=== PATIENT | male | born 1965 | race African-American/Black ===

== ENCOUNTER 2016-09-11 07:08 | Emergency (ER) | payer OTHER ==
[~2016-09-11] VITALS: Ht 185.4 cm; Wt 84.0 kg
[~2016-09-11 07:08] MED LIST: DIOV80TA4 PO; GLUCTAB PO; HYDR-2768 PO; NIAC500T5 PO; ROSU20 PO; TAMS0.4C67 PO; Z.0.COMMODE-3:1; Z.0.WALKERFRONT
[2016-09-11 07:10] VITALS: BP 118/66; PULSE 60; RESP 20; TEMP 97.5; O2SAT 96
--- NOTE | 2016-09-11 07:46 | PD ---
HPI Chief Complaint: Flank/Kidney Pain Time Seen by Provider: 07:43 Travel History International Travel<30 days: No Contact w/Intl Traveler<30days: No Traveled to known affect area: No History of Present Illness HPI 51 year old male presents to the emergency department for evaluation of right flank pain that radiates to the right upper abdomen that has been ongoing for several days, but has worsened over the past 2 days. Patient states that movement does not necessarily worsen the pain. However, if he moves a certain direction, he can reduce the pain. He denies any fevers or chills. He Denies any shortness breath. He states when the pain becomes severe, he becomes short of breath. He denies any chest pain. No vomiting. He states the pain makes it hard to walk. Reports PMH of hypertension, hyperlipidemia, diabetes. He is status post right nephrectomy because he donated the kidney. He also reports right arthroplasty. PFSH Past Medical History Hx Anticoagulant Therapy: Yes Arthritis: No Asthma: No Autoimmune Disease: No Blood Disorders: No Anxiety: No Depression: No Heart Rhythm Problems: No Cancer: No Cardiac Catheterization: Yes Cardiovascular Problems: Yes (CARDIAC CATH) High Cholesterol: No Chemotherapy: No Chest Pain: Yes Congestive Heart Failure: No COPD: No Cerebrovascular Accident: No Diabetes: Yes Diminished Hearing: No Endocrine: Yes GERD: No Glaucoma: No Genitourinary: Yes (HAS ONLY ONE KIDNEY - RIGHT DONATED ; BPH) Headaches: No Hepatitis: No Hiatal Hernia: No Hypertension: Yes Immune Disorder: No Kidney Stones: No Musculoskeletal: Yes (ARTHRITIS ; NECK PAIN -DISC PROBLEM) Neurologic: No Psychiatric: No Reproductive: No Respiratory: No Myocardial Infarction: No Radiation Therapy: No Renal Failure: No Seizures: No Sickle Cell Disease: No Sleep Apnea: No Thyroid Disease: No Ulcer: No Past Surgical History Abdominal Surgery: Yes (APPENDECTOMY) AICD: No Appendectomy: Yes Body Medical Devices: NONE Coronary Artery Bypass Graft: No Genitourinary Surgery: Yes (KIDNEY DONOR RIGHT KIDNEY) Pacemaker: No Other Surgery: Yes Family History Family Hypercholesterolemia: Yes Social History Alcohol Use: Yes (BEER OCCAS) Tobacco Use: Yes (2 CIGAR A DAY) Substance Use: No Allergies-Medications (Allergen,Severity, Reaction): Coded Allergies: CALEB Inhibitors (Verified Allergy, Unknown, Swelling, 09/11/16) Reported Meds & Prescriptions Reported Meds & Active Scripts Active Flexeril (Cyclobenzaprine HCl) 10 Mg Tab 10 Mg PO TID Lortab (Hydrocodone-Acetaminophen) 5-325 Mg Tab 1 Tab PO Q6H PRN Walker Front Wheel (Z.0.walkerfront) Device 1 Unit Commode-3:1 (Z.0.commode-3:1) Device 1 Unit Reported Niacin 500 Mg Tab 500 Mg PO DAILY Hctz (Hydrochlorothiazide) 25 Mg Tab 25 Mg PO DAILY Diovan (Valsartan) 80 Mg Tab 80 Mg PO DAILY Glucophage XR 24 HR (Metformin HCl) 500 Mg Tab 500 Mg PO DAILY Crestor (Rosuvastatin Calcium) 20 Mg Tab 20 Mg PO DAILY Flomax (Tamsulosin HCl) 0.4 Mg Cap 0.4 Mg PO DAILY Review of Systems Except as stated in HPI: all other systems reviewed are Neg Physical Exam Narrative GENERAL: Well-developed well-nourished male patient, ambulatory. Afebrile. SKIN: Warm and dry. HEAD: Normocephalic. Atraumatic. EYES: No scleral icterus. No injection or drainage. NECK: Supple, trachea midline. No JVD or lymphadenopathy. CARDIOVASCULAR: Regular rate and rhythm without murmurs, gallops, or rubs. RESPIRATORY: Breath sounds equal bilaterally. No accessory muscle use. Lungs sounds are clear to auscultation. GASTROINTESTINAL: Abdomen soft and nondistended. Patient has tenderness over right upper quadrant. MUSCULOSKELETAL: No cyanosis, or edema. BACK: Nontender without obvious deformity. Right CVA tenderness. No midline spinal tenderness to palpation. Data Data Last Documented VS Vital Signs Date Time Temp Pulse Resp B/P Pulse Ox O2 Delivery O2 Flow Rate FiO2 09/11/16 10:39 09/11/16 10:36 54 18 100 Room Air 09/11/16 07:10 97.5 Orders Complete Blood Count With Diff (09/11/16 07:42) Comprehensive Metabolic Panel (09/11/16 07:42) Lipase (09/11/16 07:42) Urinalysis - C+S If Indicated (09/11/16 07:42) Electrocardiogram (09/11/16 07:42) Hydromorphone Pf Inj (Dilaudid Pf Inj) (09/11/16 09:15) Labs Laboratory Tests Test 09/11/16 09/11/16 08:03 08:10 White Blood Count 8.4 TH/MM3 Red Blood Count 4.65 MIL/MM3 Hemoglobin 13.4 GM/DL Hematocrit 39.1 % Mean Corpuscular Volume 84.1 FL Mean Corpuscular Hemoglobin 28.9 PG Mean Corpuscular Hemoglobin 34.4 % Concent Red Cell Distribution Width 16.1 % Platelet Count 287 TH/MM3 Mean Platelet Volume 7.3 FL Neutrophils (%) (Auto) 66.0 % Lymphocytes (%) (Auto) 21.4 % Monocytes (%) (Auto) 10.4 % Eosinophils (%) (Auto) 1.6 % Basophils (%) (Auto) 0.6 % Neutrophils # (Auto) 5.6 TH/MM3 Lymphocytes # (Auto) 1.8 TH/MM3 Monocytes # (Auto) 0.9 TH/MM3 Eosinophils # (Auto) 0.1 TH/MM3 Basophils # (Auto) 0.1 TH/MM3 CBC Comment DIFF FINAL Differential Comment Sodium Level 136 MEQ/L Potassium Level 4.0 MEQ/L Chloride Level 103 MEQ/L Carbon Dioxide Level 24.4 MEQ/L Anion Gap 9 MEQ/L Blood Urea Nitrogen 18 MG/DL Creatinine 1.13 MG/DL Estimat Glomerular Filtration 82 ML/MIN Rate Random Glucose 93 MG/DL Calcium Level 9.1 MG/DL Total Bilirubin 0.3 MG/DL Aspartate Amino Transf 17 U/L (AST/SGOT) Alanine Aminotransferase 22 U/L (ALT/SGPT) Alkaline Phosphatase 97 U/L Total Protein 7.5 GM/DL Albumin 3.5 GM/DL Lipase 355 U/L Urine Color LIGHT-YELLOW Urine Turbidity CLEAR Urine pH 5.5 Urine Specific [place] 1.009 Urine Protein NEG mg/dL Urine Glucose (UA) NEG mg/dL Urine Ketones NEG mg/dL Urine Occult Blood NEG Urine Nitrite NEG Urine Bilirubin NEG Urine Urobilinogen LESS THAN 2.0 MG/DL Urine Leukocyte Esterase NEG Urine RBC LESS THAN 1 /hpf Urine WBC LESS THAN 1 /hpf Urine Squamous Epithelial <1 /hpf Cells Microscopic Urinalysis Comment CULT NOT INDICATED MDM Medical Decision Making Medical Screen Exam Complete: Yes Emergency Medical Condition: Yes Medical Record Reviewed: Yes Differential Diagnosis cholecystitis vs. pancreatitis vs. muscle spasms vs. muscle strain vs. UTI Narrative Course 51-year-old male presents to the emergency department for evaluation of right flank pain that radiates to the right upper abdomen, that worsened 2 days ago. CBC, CMP, lipase, UA, EKG are ordered and pending in triage. Workup is initiated in triage. Once a medical bed becomes available, patient will be transferred and care assumed by that provider. Scripts Cyclobenzaprine (Flexeril)10 Mg Tab10 Mg PO TID #15 TAB Ref 0 Prov:Johnathan Meade MD 09/11/16 Hydrocodone-Acetaminophen (Lortab)5-325 Mg Tab1 Tab PO Q6H PRN (PAIN) #20 TAB Ref 0 Prov:Johnathan Meade MD 09/11/16 Doris Noriega Sep 11, 2016 07:46
[2016-09-11 08:39] LABS: AUTOMATED NEUTROPHIL # 5.6 TH/MM3 (1.8-7.7); BASOPHIL # 0.1 TH/MM3 (0-0.2); BASOPHIL % 0.6 % (0.0-2.0); EOSINOPHIL # 0.1 TH/MM3 (0-0.4); EOSINOPHIL % 1.6 % (0.0-4.0); HEMATOCRIT 39.1 % (39.0-51.0); HEMO FLAGS DIFF FINAL; LYMPH % 21.4 % (9.0-44.0); LYMPHOCYTE # 1.8 TH/MM3 (1.0-4.8); MEAN CELL VOLUME 84.1 FL (80.0-100.0); MEAN CORPUSCULAR HEMOGLOBIN 28.9 PG (27.0-34.0); MEAN CORPUSCULAR HGB CONC 34.4 % (32.0-36.0); MONO % 10.4 % (0.0-8.0); PLATELET COUNT 287 TH/MM3 (150-450); RED BLOOD COUNT 4.65 MIL/MM3 (4.50-5.90); RED CELL DISTRIBUTION WIDTH 16.1 % (11.6-17.2); WHITE BLOOD COUNT 8.4 TH/MM3 (4.0-11.0)
[2016-09-11 08:42] LABS: BLOOD, URINE NEG (NEG); GLUCOSE,URINE NEG (NEG); KETONE, URINE NEG (NEG); NITRITE,URINE NEG (NEG); PH, URINE 5.5 (5.0-8.5); SQUAMOUS EPITHELIAL CELL URINE <1 /hpf (0-5); URINE COLOR LIGHT-YELLOW (YELLW/STRAW)
[2016-09-11 08:48] VITALS: BP 113/64; PULSE 53; RESP 18; O2SAT 100
[2016-09-11 08:48] LABS: COMMENT (UR) CULT NOT INDICATED; CULTURE IF INDICATED CULT NOT INDICATED
[2016-09-11 09:10] LABS: ALKALINE PHOSPHATASE 97 U/L (45-117); ALT (GPT) 22 U/L (12-78); ANION GAP 9 MEQ/L (5-15); AST (GOT) 17 U/L (15-37); BICARBONATE 24.4 MEQ/L (21.0-32.0); BLOOD UREA NITROGEN 18 MG/DL (7-18); CHLORIDE 103 MEQ/L (98-107); GLOMERULAR FILTRATION RATE 82 ML/MIN (>89); SODIUM (NA) 136 MEQ/L (136-145); TOTAL BILIRUBIN ADULT 0.3 MG/DL (0.2-1.0)
[2016-09-11] MEDS ORDERED: HYDROmorphone HCL PF 1 MG/ML VIAL IM ONE (09:15)
--- NOTE | 2016-09-11 10:27 | PD ---
Physical Exam Date Seen by Provider: Sep 11, 2016 Time Seen by Provider: 09:00 Narrative She was initially seen by Doris Dimas and orders and labs were sent. Patient came in with complaints of right sided flank pain. Patient reports been there for 2 days. He denies any trauma. Denies any fevers, chills. He denies any chest pain, chest pressure. On examination. He is point tender in his right lower intercostal muscle distribution. There is no bony deformity. It is tender to touch and tender to movement from side to side. 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 Data Data Last Documented VS Vital Signs Date Time Temp Pulse Resp B/P Pulse Ox O2 Delivery O2 Flow Rate FiO2 09/11/16 08:48 53 18 113/64 100 Room Air 09/11/16 07:10 97.5 Orders Complete Blood Count With Diff (09/11/16 07:42) Comprehensive Metabolic Panel (09/11/16 07:42) Lipase (09/11/16 07:42) Urinalysis - C+S If Indicated (09/11/16 07:42) Electrocardiogram (09/11/16 07:42) Hydromorphone Pf Inj (Dilaudid Pf Inj) (09/11/16 09:15) Labs Laboratory Tests Test 09/11/16 09/11/16 08:03 08:10 White Blood Count 8.4 TH/MM3 Red Blood Count 4.65 MIL/MM3 Hemoglobin 13.4 GM/DL Hematocrit 39.1 % Mean Corpuscular Volume 84.1 FL Mean Corpuscular Hemoglobin 28.9 PG Mean Corpuscular Hemoglobin 34.4 % Concent Red Cell Distribution Width 16.1 % Platelet Count 287 TH/MM3 Mean Platelet Volume 7.3 FL Neutrophils (%) (Auto) 66.0 % Lymphocytes (%) (Auto) 21.4 % Monocytes (%) (Auto) 10.4 % Eosinophils (%) (Auto) 1.6 % Basophils (%) (Auto) 0.6 % Neutrophils # (Auto) 5.6 TH/MM3 Lymphocytes # (Auto) 1.8 TH/MM3 Monocytes # (Auto) 0.9 TH/MM3 Eosinophils # (Auto) 0.1 TH/MM3 Basophils # (Auto) 0.1 TH/MM3 CBC Comment DIFF FINAL Differential Comment Sodium Level 136 MEQ/L Potassium Level 4.0 MEQ/L Chloride Level 103 MEQ/L Carbon Dioxide Level 24.4 MEQ/L Anion Gap 9 MEQ/L Blood Urea Nitrogen 18 MG/DL Creatinine 1.13 MG/DL Estimat Glomerular Filtration 82 ML/MIN Rate Random Glucose 93 MG/DL Calcium Level 9.1 MG/DL Total Bilirubin 0.3 MG/DL Aspartate Amino Transf 17 U/L (AST/SGOT) Alanine Aminotransferase 22 U/L (ALT/SGPT) Alkaline Phosphatase 97 U/L Total Protein 7.5 GM/DL Albumin 3.5 GM/DL Lipase 355 U/L Urine Color LIGHT-YELLOW Urine Turbidity CLEAR Urine pH 5.5 Urine Specific [place] 1.009 Urine Protein NEG mg/dL Urine Glucose (UA) NEG mg/dL Urine Ketones NEG mg/dL Urine Occult Blood NEG Urine Nitrite NEG Urine Bilirubin NEG Urine Urobilinogen LESS THAN 2.0 MG/DL Urine Leukocyte Esterase NEG Urine RBC LESS THAN 1 /hpf Urine WBC LESS THAN 1 /hpf Urine Squamous Epithelial <1 /hpf Cells Microscopic Urinalysis Comment CULT NOT INDICATED MDM Medical Record Reviewed: Yes Supervised Visit with LALO: Yes Differential Diagnosis Right sided intercostal muscle pull versus back spasm versus atypical muscular spasm versus retroperitoneal pain Narrative Course 81-year-old presents with 1-1/2 day history of right sided flank pain. Patient has point tenderness to his right lower intercostal muscle. It is tender to touch and hurts with movement from side to side. There is no rash noted. Patient is afebrile. Vital signs within normal limits. White count was 8.4. LFTs were normal. Creatinine is 1.13. The patient was given Dilaudid injection of 1 mg IM times one dose. I discussed with the patient that this is likely musculoskeletal as he is tender to touch in his intercostal muscle distribution. 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 I informed him that sometimes she can twist that muscle and not know it initially to get an inflammatory response. Given his history of single kidney, we will hold off on recommending NSAIDs. He'll be given a prescription for Lortab and Flexeril. He's been one about the side effects told not to drink alcohol or drive motor vehicle. He is instructed to return of he develops any worsening pain, fevers chills, or any other reason. Diagnosis Primary Impression: right posterior intercostal muscle pain. Additional Impression: history of single kidney Patient Instructions: Narcotic given in the ED Additional Instruction: Ice times one day then moist heat. Avoid heavy lifting 2-3 days. Med/Other Pt SpecificInfo: Prescription(s) given Scripts Cyclobenzaprine (Flexeril)10 Mg Tab10 Mg PO TID #15 TAB Ref 0 Prov:Johnathan Meade MD 09/11/16 Hydrocodone-Acetaminophen (Lortab)5-325 Mg Tab1 Tab PO Q6H PRN (PAIN) #20 TAB Ref 0 Prov:Johnathan Meade MD 09/11/16 Disposition: 01 DISCHARGE HOME Condition: Stable Johnathan Meade MD Sep 11, 2016 10:27
[2016-09-11] MEDS ORDERED: HYDR-3533 PO (10:28)
[2016-09-11] MEDS ORDERED: CYCL1TAB29 PO (10:28)
[2016-09-11 10:36] VITALS: BP 124/71; PULSE 54; RESP 18; O2SAT 100
--- NOTE | 2016-09-13 12:49 | EKG ---
Date Performed: 09/11/2016 Time Performed: 08:53:46 PTAGE: 51 years EKG: SINUS BRADYCARDIA BORDERLINE ECG PREVIOUS TRACING : 03/09/2015 09.27 Compared to prior tracing no significant change DOCTOR: Chito Cox Interpretating Date/Time 09/13/2016 12:47:49
== END 2016-09-11 10:40 | disposition home or self-care (01) ==
LOC: NEPE 07:08
DX: M79.1 Myalgia (principal); R94.31 Abnormal electrocardiogram [ECG] [EKG]; I10 Essential (primary) hypertension; Z90.5 Acquired absence of kidney
CPT/HCPCS: 80053; 81001; 83690; 85025; 93005; 96372; 99284; J1170

== ENCOUNTER 2016-11-18 10:19 | Inpatient (IN) | payer OTHER ==
[~2016-11-18] VITALS: Ht 185.4 cm; Wt 79.4 kg
[~2016-11-18 10:19] MED LIST changes: +CYCL1TAB29 PO; +HYDR-3533 PO
[2016-11-18 10:21] VITALS: BP 115/57; PULSE 67; RESP 20; TEMP 98.1; O2SAT 97
[2016-11-18] MEDS ORDERED: TAMS5CAP PO (10:34)
[2016-11-18] MEDS ORDERED: NIAC500T5 PO (10:34)
[2016-11-18] MEDS ORDERED: DIOV80TA4 PO (10:34)
[2016-11-18] MEDS ORDERED: HYDR25TA5 PO (10:34)
[2016-11-18] MEDS ORDERED: METF500T PO (10:34)
[2016-11-18] MEDS ORDERED: ROSU20 PO (10:34)
[2016-11-18] MEDS ORDERED: SODIUM CHLOR 0.9% 1000 ML INJ 1,000 ML IV SCH ×2 (10:54→13:00)
[2016-11-18 11:00] VITALS: RESP 16; O2SAT 100
[2016-11-18] MEDS ORDERED: MORPHINE SULFATE 4 MG/ML INJ IV PUSH ONE (11:00)
[2016-11-18] MEDS ORDERED: ONDANSETRON HCL 4 MG/2 ML VIAL IVP ONE (11:00)
[2016-11-18] MEDS ORDERED: SODIUM CHLORIDE 0.9% FLUSH 10 ML FLUSH IV FLUSH PRN (11:00)
[2016-11-18] MEDS ORDERED: PANTOPRAZOLE SODIUM 40 MG VIAL IVP ONE (11:00)
--- NOTE | 2016-11-18 11:12 | PD ---
HPI Chief Complaint: GI Complaint Time Seen by Provider: 11:00 Travel History International Travel<30 days: No Contact w/Intl Traveler<30days: No Traveled to known affect area: No History of Present Illness HPI Physical comes in complaining of epigastric pain that began 2 days ago. Patient has been sharp stabbing like in nature without radiation. Patient went to a walk-in clinic yesterday received a GI cocktail that improved his symptoms some. Patient reports associated nausea, but denies vomiting. Denies any chest pain, fevers, shortness of breath, back pain, numbness or tingling, loss or change in bowel or bladder, or fevers. Patient denies any change in pain with eating, states they try to drink some coffee that made him nauseous. Patient reports that he does drink a 4-5 beers daily. Patient has a single kidney secondary to donating the other one. Patient is a history of hypertension and diabetes. PFSH Past Medical History Hx Anticoagulant Therapy: Yes Arthritis: No Asthma: No Autoimmune Disease: No Blood Disorders: No Anxiety: No Depression: No Heart Rhythm Problems: No Cancer: No Cardiac Catheterization: Yes Cardiovascular Problems: Yes (CARDIAC CATH) High Cholesterol: No Chemotherapy: No Chest Pain: Yes Congestive Heart Failure: No COPD: No Cerebrovascular Accident: No Diabetes: Yes Patient Takes Glucophage: No Diminished Hearing: No Endocrine: Yes Gastrointestinal Disorders: Yes (GERD) GERD: No Glaucoma: No Genitourinary: Yes (HAS ONLY ONE KIDNEY - RIGHT DONATED ; BPH) Headaches: No Hepatitis: No Hiatal Hernia: No Hypertension: Yes Immune Disorder: No Kidney Stones: No Medical other: No Musculoskeletal: Yes (ARTHRITIS ; NECK PAIN -DISC PROBLEM) Neurologic: No Psychiatric: No Reproductive: No Respiratory: No Myocardial Infarction: No Radiation Therapy: No Renal Failure: No Seizures: No Sickle Cell Disease: No Sleep Apnea: No Thyroid Disease: No Ulcer: No Influenza Vaccination: Yes Past Surgical History Abdominal Surgery: Yes (APPENDECTOMY) AICD: No Appendectomy: Yes Body Medical Devices: NONE Coronary Artery Bypass Graft: No Genitourinary Surgery: Yes (KIDNEY DONOR RIGHT KIDNEY) Pacemaker: No Other Surgery: Yes Family History Family Myocardial Infarction: Yes Family Hypercholesterolemia: Yes Social History Alcohol Use: Yes (BEER OCCAS) Tobacco Use: Yes (1/2 ppd) Substance Use: No Allergies-Medications (Allergen,Severity, Reaction): Coded Allergies: CALEB Inhibitors (Verified Allergy, Unknown, Swelling, 11/18/16) Reported Meds & Prescriptions Reported Meds & Active Scripts Active Reported Diovan (Valsartan) 80 Mg Tab 80 Mg PO DAILY Flomax (Tamsulosin HCl) 0.4 Mg Cap 0.4 Mg PO HS Crestor (Rosuvastatin Calcium) 20 Mg Tab 20 Mg PO DAILY Niacin 500 Mg Tab 500 Mg PO DAILY Metformin (Metformin HCl) 500 Mg Tab 500 Mg PO DAILY With a meal Hydrochlorothiazide 25 Mg Tab 25 Mg PO DAILY Review of Systems Except as stated in HPI: all other systems reviewed are Neg Physical Exam Narrative GENERAL: Well-developed, overly nourished, in no acute distress, and non-ill appearing. SKIN: Focused skin assessment warm and dry. HEAD: Atraumatic. Normocephalic. EYES: Pupils equal and round. EOMI. No scleral icterus. No injection or drainage. ENT: No nasal bleeding or discharge. Mucous membranes pink and moist. NECK: Trachea midline. No JVD. Supple. No nuclear rigidity. CARDIOVASCULAR: Regular rate and rhythm. No murmur appreciated. RESPIRATORY: No accessory muscle use. No respiratory distress. Clear to auscultation. Breath sounds equal bilaterally. GASTROINTESTINAL: Abdomen soft, nondistended. Hepatic and splenic margins not palpable. Normal bowel sounds 4. No pulsatile mass. Patient reports tenderness to palpation epigastric region. Negative Bourgeois sign. MUSCULOSKELETAL: No obvious deformities. No clubbing. No cyanosis. No edema. Full range of motion. NEUROLOGICAL: Awake and alert. No obvious cranial nerve deficits. Motor grossly within normal limits. Normal speech. PSYCHIATRIC: Appropriate mood and affect; insight and judgment normal. Data Data Last Documented VS Vital Signs Date Time Temp Pulse Resp B/P Pulse Ox O2 Delivery O2 Flow Rate FiO2 11/18/16 10:21 98.1 67 20 115/57 97 Orders Electrocardiogram (11/18/16 ) Complete Blood Count With Diff (11/18/16 10:54) Comprehensive Metabolic Panel (11/18/16 10:54) Lipase (11/18/16 10:54) Prothrombin Time / Inr (Pt) (11/18/16 10:54) Act Partial Throm Time (Ptt) (11/18/16 10:54) Ct Abd/Pel W/O Iv Contrast (11/18/16 10:54) Iv Access Insert/Monitor (11/18/16 10:54) Ecg Monitoring (11/18/16 10:54) Oximetry (11/18/16 10:54) Morphine Inj (Morphine Inj) (11/18/16 11:00) Ondansetron Inj (Zofran Inj) (11/18/16 11:00) Sodium Chlor 0.9% 1000 Ml Inj (Ns 1000 M (11/18/16 10:54) Sodium Chloride 0.9% Flush (Ns Flush) (11/18/16 11:00) Urinalysis - C+S If Indicated (11/18/16 10:59) Pantoprazole Inj (Protonix Inj) (11/18/16 11:00) Troponin I (11/18/16 11:05) Chest, Single Ap (11/18/16 ) Admit Order (Ed Use Only) (11/18/16 12:29) Labs Laboratory Tests Test 11/18/16 11:05 White Blood Count 8.5 TH/MM3 Red Blood Count 4.71 MIL/MM3 Hemoglobin 13.6 GM/DL Hematocrit 39.1 % Mean Corpuscular Volume 83.1 FL Mean Corpuscular Hemoglobin 28.9 PG Mean Corpuscular Hemoglobin 34.7 % Concent Red Cell Distribution Width 16.3 % Platelet Count 284 TH/MM3 Mean Platelet Volume 7.1 FL Neutrophils (%) (Auto) 70.0 % Lymphocytes (%) (Auto) 20.1 % Monocytes (%) (Auto) 8.3 % Eosinophils (%) (Auto) 1.1 % Basophils (%) (Auto) 0.5 % Neutrophils # (Auto) 6.0 TH/MM3 Lymphocytes # (Auto) 1.7 TH/MM3 Monocytes # (Auto) 0.7 TH/MM3 Eosinophils # (Auto) 0.1 TH/MM3 Basophils # (Auto) 0.0 TH/MM3 CBC Comment DIFF FINAL Differential Comment Prothrombin Time 10.0 SEC Prothromb Time International 0.9 RATIO Ratio Activated Partial 26.2 SEC Thromboplast Time Sodium Level 132 MEQ/L Potassium Level 3.8 MEQ/L Chloride Level 96 MEQ/L Carbon Dioxide Level 27.1 MEQ/L Anion Gap 9 MEQ/L Blood Urea Nitrogen 10 MG/DL Creatinine 1.09 MG/DL Random Glucose 86 MG/DL Calcium Level 9.8 MG/DL Total Bilirubin 1.1 MG/DL Aspartate Amino Transf 20 U/L (AST/SGOT) Alanine Aminotransferase 25 U/L (ALT/SGPT) Alkaline Phosphatase 113 U/L Troponin I LESS THAN 0.02 NG/ML Total Protein 8.0 GM/DL Albumin 3.6 GM/DL Lipase 59077 U/L [facility] Medical Decision Making Medical Screen Exam Complete: Yes Emergency Medical Condition: Yes Interpretation(s) EKG reviewed by Dr. Adame shows sinus rhythm with a ventricular rate of 60. No STEMI. Chest x-ray read by the radiologist shows: No acute disease. CT the abdomen and pelvis shows: 1. Somewhat prominent gallbladder that appears benign. 2. No other significant abnormality is appreciated. Differential Diagnosis Pancreatitis, gastritis, ileus, gastroparesis, obstruction, mass, pneumonia, acute coronary syndrome(unlikely), electrolyte abnormality, dehydration, cholecystitis, diverticulitis, enteritis, other Narrative Course Patient was seen and examined. IV was established. Patient was placed on residential monitor. Initial laboratory radiological studies were obtained and reviewed with the exception of urine as the patient has not provided this yet. Patient was given morphine for pain, Zofran for nausea, and IV fluids. Patient reassessed reports some improvement of symptoms with medication. Discussed all findings and plan of care with patient, who is agreeable for admission. All questions were answered. Patient remains stable throughout ED course. Discussed patient with Dr. Adame, who is in agreement with plan of care and disposition. Physician Communication Physician Communication [phone] Arriaga, who is agreeable to admit the patient. Diagnosis Primary Impression: Pancreatitis Qualified Code: K85.20 - Alcohol-induced acute pancreatitis without infection or necrosis Additional Impression: Hyponatremia Admitting Information Admitting Physician Requests: Admit Condition: Stable Nathen Walker Nov 18, 2016 11:12
[2016-11-18 11:23] LABS: BASOPHIL % 0.5 % (0.0-2.0); EOSINOPHIL # 0.1 TH/MM3 (0-0.4); EOSINOPHIL % 1.1 % (0.0-4.0); HEMATOCRIT 39.1 % (39.0-51.0); HEMO FLAGS DIFF FINAL; LYMPH % 20.1 % (9.0-44.0); LYMPHOCYTE # 1.7 TH/MM3 (1.0-4.8); MEAN CELL VOLUME 83.1 FL (80.0-100.0); MEAN CORPUSCULAR HEMOGLOBIN 28.9 PG (27.0-34.0); MEAN CORPUSCULAR HGB CONC 34.7 % (32.0-36.0); MONO % 8.3 % (0.0-8.0); PLATELET COUNT 284 TH/MM3 (150-450); RED BLOOD COUNT 4.71 MIL/MM3 (4.50-5.90); RED CELL DISTRIBUTION WIDTH 16.3 % (11.6-17.2); WHITE BLOOD COUNT 8.5 TH/MM3 (4.0-11.0)
[2016-11-18 11:43] LABS: APTT (PATIENT) 26.2 SEC (24.3-30.1); INTERNATIONAL NORMALIZED RATIO 0.9 RATIO
[2016-11-18 11:45] LABS: ANION GAP 9 MEQ/L (5-15); AST (GOT) 20 U/L (15-37); BICARBONATE 27.1 MEQ/L (21.0-32.0); BLOOD UREA NITROGEN 10 MG/DL (7-18); CHLORIDE 96 MEQ/L (98-107); POTASSIUM 3.8 MEQ/L (3.5-5.1); SODIUM (NA) 132 MEQ/L (136-145)
[2016-11-18 11:46] LABS: ALT (GPT) 25 U/L (12-78)
[2016-11-18 11:48] LABS: ALKALINE PHOSPHATASE 113 U/L (45-117); TOTAL BILIRUBIN ADULT 1.1 MG/DL (0.2-1.0)
--- NOTE | 2016-11-18 11:56 | RADRPT ---
EXAM DATE/TIME: 11/18/2016 11:31 [facility] COMPARISON: No previous studies available for comparison. INDICATIONS : Pain in lower chest and short of breath for 2 weeks, no chest surgery MEDICAL HISTORY : None. SURGICAL HISTORY : total knee ENCOUNTER: Initial ACUITY: 2 weeks PAIN SCORE: 10/10 LOCATION: Bilateral chest FINDINGS: A single view of the chest demonstrates the lungs to be symmetrically aerated without evidence of mas s, infiltrate or effusion. The cardiomediastinal contours are unremarkable. Osseous structures are intact. CONCLUSION: No acute disease. Olegario Bertrand MD FACR on November 18, 2016 at 11:54 Board Certified Radiologist. This report was verified electronically.
--- NOTE | 2016-11-18 12:12 | RADRPT ---
EXAM DATE/TIME: 11/18/2016 11:23 [facility] COMPARISON: No previous studies available for comparison. INDICATIONS : Epigastric pain x2 days. ORAL CONTRAST: No oral contrast ingested. RADIATION DOSE: 9.96 CTDIvol (mGy) MEDICAL HISTORY : Gastroesophageal reflux disease. Hypertension. Cardiovascular disease Diabetes. SURGICAL HISTORY : Appendectomy. Cardiac catheterization. ENCOUNTER: Initial ACUITY: 2 days PAIN SCALE: 10/10 LOCATION: Bilateral epigastric TECHNIQUE: Volumetric scanning of the abdomen and pelvis was performed. Using automated exposure control and ad justment of the mA and/or kV according to patient size, radiation dose was kept as low as reasonably achievable to obtain optimal diagnostic quality images. FINDINGS: Lung bases are clear. The liver is free of focal defects. The gallbladder is mildly prominent but i s unremarkable. The pancreas, duodenum, and adrenal glands are unremarkable. The right kidney is absent. The left k idney is unremarkable. There is no ascites or adenopathy appreciated. Bladder, prostate and seminal vesicles are unremarkable. Review of bone windows reveals only degenerative changes. CONCLUSION: 1. Somewhat prominent gallbladder that appears benign. 2. No other significant abnormality is appreciated. Olegario Bertrand MD FACR on November 18, 2016 at 11:54 Board Certified Radiologist. This report was verified electronically.
[2016-11-18 12:30] VITALS: BP 119/66; PULSE 62; RESP 16; O2SAT 100
[2016-11-18] MEDS ORDERED: ONDANSETRON HCL 4 MG/2 ML VIAL IV PRN (12:30)
--- NOTE | 2016-11-18 13:02 | HHI.HP ---
HPI Service [facility] Hospitalists Primary Care Physician Ihsan Lozano MD Admission Diagnosis pancreatitis, mild hyponatremia Chief Complaint: abdominal pain Travel History International Travel<30 Days: No Contact w/Intl Traveler <30 Da: No Traveled to Known Affected Are: No History of Present Illness Mr. Gross is a pleasant 51 y/o AAM with diabetes, HTN and tobacco use who presented to the ED at [facility] on 11/18/16 with complaints of abdominal pain and nausea. He describes the pain as a sharp, stabbing in the epigastric area. Patient went to a walk-in clinic yesterday received a GI cocktail that improved his symptoms some. Patient reports associated nausea, but denies vomiting. Pt ate one time yesterday but can't say that the pain was worse after eating. This morning after drinking coffee his pain worsened significantly and this prompted him to come to the ED for further evaluation. Denies any chest pain, fevers, shortness of breath, back pain, numbness or tingling. Pt reports that yesterday his stools were very green but denies any melena or BRBPR. Patient reports that he does drink a 4-5 beers daily, no increased frequency recently. No new medications or medication changes. No recent illnesses. Pts labs at admission [place] [id number]. CT abd/pelvis showed a somewhat prominent gallbladder but otherwise benign appearing abdomen. Review of Systems Constitutional: DENIES: Fever, Chills Eyes: DENIES: Vision loss Respiratory: DENIES: Cough, Shortness of breath Cardiovascular: DENIES: Chest pain, Palpitations, Lower Extremity Edema Gastrointestinal: COMPLAINS OF: Abdominal pain, Nausea, DENIES: Constipation, Diarrhea, Vomiting Genitourinary: DENIES: Hematuria, Dysuria Musculoskeletal: DENIES: Neck pain Integumentary: DENIES: Rash Neurologic: DENIES: Headache Psychiatric: DENIES: Confusion Past Family Social History Past Medical History HTN Diabetes Hyperlipidemia Reported hx of pancreatitis in the past Past Surgical History Total knee replacement, right Nephrectomy in 1997 for organ donation Reported Medications Diovan (Valsartan) 80 Mg Tab 80 Mg PO DAILY Flomax (Tamsulosin HCl) 0.4 Mg Cap 0.4 Mg PO HS Crestor (Rosuvastatin Calcium) 20 Mg Tab 20 Mg PO DAILY Niacin 500 Mg Tab 500 Mg PO DAILY Metformin (Metformin HCl) 500 Mg Tab 500 Mg PO DAILY With a meal Hydrochlorothiazide 25 Mg Tab 25 Mg PO DAILY Allergies: Coded Allergies: CALEB Inhibitors (Verified Allergy, Unknown, Swelling, 11/18/16) Family History Noncontributory Social History (+)Tobacco use, 1/2ppd x 30+ years, quit for about 10 years during that time. (+)Alcohol use, 4 beers per day Physical Exam Vital Signs Vital Signs Date Time Temp Pulse Resp B/P Pulse Ox O2 Delivery O2 Flow Rate FiO2 11/18/16 10:21 98.1 67 20 115/57 97 Physical Exam GENERAL: This is a well-nourished, well-developed patient, in no apparent distress. HEENT: Atraumatic. Normocephalic. No temporal or scalp tenderness. No scleral icterus. Airway patent. NECK: Trachea midline, supple, nontender. CARDIO: Regular. RESP: CTA bilaterally. No wheezes, rales, or rhonchi. ABD: +BS, soft, epigastric tenderness, nondistended. EXT: Extremities without clubbing, cyanosis, or edema. NEURO: Awake and alert. Motor and sensory grossly within normal limits. Normal speech. Laboratory Laboratory Tests Test 11/18/16 11:05 White Blood Count 8.5 Red Blood Count 4.71 Hemoglobin 13.6 Hematocrit 39.1 Mean Corpuscular Volume 83.1 Mean Corpuscular Hemoglobin 28.9 Mean Corpuscular Hemoglobin 34.7 Concent Red Cell Distribution Width 16.3 Platelet Count 284 Mean Platelet Volume 7.1 Neutrophils (%) (Auto) 70.0 Lymphocytes (%) (Auto) 20.1 Monocytes (%) (Auto) 8.3 Eosinophils (%) (Auto) 1.1 Basophils (%) (Auto) 0.5 Neutrophils # (Auto) 6.0 Lymphocytes # (Auto) 1.7 Monocytes # (Auto) 0.7 Eosinophils # (Auto) 0.1 Basophils # (Auto) 0.0 CBC Comment DIFF FINAL Differential Comment Prothrombin Time 10.0 Prothromb Time International 0.9 Ratio Activated Partial 26.2 Thromboplast Time Sodium Level 132 Potassium Level 3.8 Chloride Level 96 Carbon Dioxide Level 27.1 Anion Gap 9 Blood Urea Nitrogen 10 Creatinine 1.09 Random Glucose 86 Calcium Level 9.8 Total Bilirubin 1.1 Aspartate Amino Transf 20 (AST/SGOT) Alanine Aminotransferase 25 (ALT/SGPT) Alkaline Phosphatase 113 Troponin I LESS THAN 0.02 Total Protein 8.0 Albumin 3.6 Lipase 98700 Result Diagram: 11/18/16 1105 11/18/16 1105 Imaging Last Impressions Chest X-Ray 11/18/16 0000 Signed Impressions: Service Date/Time: Friday, November 18, 2016 11:31 - CONCLUSION: No acute disease. Olegario Bertrand MD FACR Septic Shock Reassessment Heart: Regular rate and rhythm Lungs: Clear Skin: Warm Peripheral Pulses: Bounding Right Radial Bounding Left Radial Bounding Right Popliteal Bounding Left Popliteal Bounding Right Dorsalis Pedis Bounding Left Dorsalis Pedis Bounding Right Posterior Tibial Bounding Left Posterior Tibial Assessment and Plan Problem List: (1) Pancreatitis Status: Acute Plan: - Pt admitted with abdominal pain and nausea and elevated lipase over 15,000 consistent with acute pancreatitis. - Etiology for the pancreatitis is unclear, possible alcohol related - Pts LFTs with slightly elevated bilirubin of 1.1 - CT Abd/pelvis (11/18) --> prominent gallbladder but otherwise benign appearing abdomen. - We will check GB US to r/o gallstones - Recheck labs in AM - IVF - NPO except meds - Supportive care - DVT prophylaxis (2) Hyponatremia Status: Acute Plan: - Likely related to poor po intake - give IVF - Recheck labs in AM (3) HTN (hypertension), benign Status: Chronic Plan: - Cont. home meds - Monitor (4) Diabetes Status: Chronic Plan: - Hold OHA - NovoLog SSI - Accu checks Assessment and Plan Patient examined. Assessment and plan formulated with Farnaz Wayne PA-C. I agree with the above. acute pancreatitis. most likely related to beer. ivf. npo. pain control.. labs in AM.. u/s gb Physician Certification 2 Midnight Certification Type: Admission for Inpatient Services Order for Inpatient Services The services are ordered in accordance with Medicare regulations or non- Medicare payer requirements, as applicable. In the case of services not specified as inpatient-only, they are appropriately provided as inpatient services in accordance with the 2-midnight benchmark. Estimated LOS (days): 2 2 days is the estimated time the patient will need to remain in the hospital, assuming treatment plan goals are met and no additional complications. Post-Hospital Plan: Home Problem Qualifiers (1) Pancreatitis: Qualified Code: K85.20 - Alcohol-induced acute pancreatitis without infection or necrosis (2) Diabetes: Farnaz Wayne Nov 18, 2016 13:02 Nelson Lang MD Nov 18, 2016 21:52
[2016-11-18] MEDS ORDERED: DEXTROSE 50% IN WATER 50 ML VIAL(D50) IV PUSH PRN (13:15)
[2016-11-18] MEDS ORDERED: GLUCAGON 1 MG/ML VIAL OTHER PRN (13:15)
[2016-11-18 14:10] LABS: BLOOD, URINE NEG (NEG); GLUCOSE,URINE NEG (NEG); KETONE, URINE NEG (NEG); NITRITE,URINE NEG (NEG); PH, URINE 6.5 (5.0-8.5); URINE COLOR YELLOW (YELLW/STRAW)
[2016-11-18 14:14] LABS: COMMENT (UR) CULT NOT INDICATED; CULTURE IF INDICATED CULT NOT INDICATED
[2016-11-18] MEDS: MORPHINE SULFATE 4 MG/ML INJ IV PUSH PRN ×3 (14:36→23:40)
--- NOTE | 2016-11-18 15:58 | RADRPT ---
EXAM DATE/TIME: 11/18/2016 14:51 [facility] COMPARISON: No previous studies available for comparison. INDICATIONS : Pancreatitis. MEDICAL HISTORY : Hypercholesterolemia. Anticoagulant therapy. GERD. Nausea. BPH. Arthritis. Diabetes. SURGICAL HISTORY : Appendectomy. Cardiac catheterization. Kidney removal, donor. Right knee arthroscopy. ENCOUNTER: Initial ACUITY: 1 day PAIN SCORE: 8/10 LOCATION: Right upper quadrant MEASUREMENTS: LIVER: 12.7 cm length COMMON DUCT: 3 mm RIGHT KIDNEY: N/A cm FINDINGS: LIVER: Normal echotexture without focal lesion or ductal dilatation. COMMON DUCT: No intraluminal mass or stone visualized. GALLBLADDER: Contains no stones, demonstrates no wall thickening or pericholecystic fluid. PANCREAS: Pancreas poorly visualized. RIGHT KIDNEY: Status post right nephrectomy. CONCLUSION: Gallbladder within normal limits. Jameel Garcia MD on November 18, 2016 at 15:55 Board Certified Radiologist. This report was verified electronically.
[2016-11-18 16:00] VITALS: BP 106/64; PULSE 62; RESP 18; TEMP 97.7; O2SAT 100
[2016-11-18] MEDS: INSULIN ASPART SUPPLEMENTAL SCALE SQ SCH ×2 (16:00→20:22)
[2016-11-18 20:00] VITALS: BP 119/64; PULSE 59; RESP 17; TEMP 98.1; O2SAT 98
[2016-11-18] MEDS: TAMSULOSIN HCL 0.4 MG CAP PO SCH (20:11)
[2016-11-18] MEDS: DEXT 5%-NACL 0.9% 1000 ML INJ 1,000 ML IV SCH (20:23)
[2016-11-19] VITALS: BP 110/60; PULSE 69; RESP 18; TEMP 97.5; O2SAT 97
[2016-11-19] MEDS: MORPHINE SULFATE 4 MG/ML INJ IV PUSH PRN ×5 (02:45→23:28)
[2016-11-19 04:00] VITALS: BP 106/58; PULSE 66; RESP 17; TEMP 99.3; O2SAT 96
[2016-11-19] MEDS: DEXT 5%-NACL 0.9% 1000 ML INJ 1,000 ML IV SCH ×3 (05:00→20:36)
[2016-11-19 06:06] LABS: AUTOMATED NEUTROPHIL # 8.7 TH/MM3 (1.8-7.7); BASOPHIL % 0.2 % (0.0-2.0); EOSINOPHIL % 0.1 % (0.0-4.0); HEMATOCRIT 37.8 % (39.0-51.0); HEMO FLAGS DIFF FINAL; LYMPH % 7.1 % (9.0-44.0); LYMPHOCYTE # 0.7 TH/MM3 (1.0-4.8); MEAN CELL VOLUME 84.3 FL (80.0-100.0); MEAN CORPUSCULAR HEMOGLOBIN 28.2 PG (27.0-34.0); MEAN CORPUSCULAR HGB CONC 33.4 % (32.0-36.0); MONO % 8.5 % (0.0-8.0); NEUT % 84.1 % (16.0-70.0); PLATELET COUNT 247 TH/MM3 (150-450); RED BLOOD COUNT 4.49 MIL/MM3 (4.50-5.90); RED CELL DISTRIBUTION WIDTH 16.1 % (11.6-17.2); WHITE BLOOD COUNT 10.3 TH/MM3 (4.0-11.0)
[2016-11-19 06:20] LABS: ALT (GPT) 37 U/L (12-78); ANION GAP 7 MEQ/L (5-15); AST (GOT) 46 U/L (15-37); BICARBONATE 26.2 MEQ/L (21.0-32.0); BLOOD UREA NITROGEN 7 MG/DL (7-18); CHLORIDE 98 MEQ/L (98-107); POTASSIUM 3.6 MEQ/L (3.5-5.1); SODIUM (NA) 131 MEQ/L (136-145)
[2016-11-19 06:22] LABS: ALKALINE PHOSPHATASE 140 U/L (45-117); HDL CHOLESTEROL 50.9 MG/DL (40.0-60.0); LDL CHOLESTEROL 46 MG/DL (0-99); TOTAL BILIRUBIN ADULT 2.3 MG/DL (0.2-1.0)
[2016-11-19] MEDS: INSULIN ASPART SUPPLEMENTAL SCALE SQ SCH ×4 (07:00→21:00)
[2016-11-19 08:00] VITALS: BP 111/60; PULSE 71; RESP 20; TEMP 98.7; O2SAT 98
[2016-11-19] MEDS: ATORVASTATIN 40 MG TAB PO SCH (08:01)
--- NOTE | 2016-11-19 08:13 | HHI.PR ---
Subjective Remarks still with alot of epigastric pain. Objective Vitals heart reg lung cta abd tender in epigastrium. bs ext no edema Vital Signs Date Time Temp Pulse Resp B/P Pulse Ox O2 Delivery O2 Flow Rate FiO2 11/19/16 04:00 99.3 66 17 106/58 96 11/19/16 03:00 16 11/19/16 00:00 97.5 69 18 110/60 97 11/18/16 20:00 98.1 59 17 119/64 98 11/18/16 16:00 97.7 62 18 106/64 100 11/18/16 12:30 62 16 119/66 100 Room Air 11/18/16 11:00 16 100 Room Air 11/18/16 10:21 98.1 67 20 115/57 97 11/18/16 11/18/16 11/19/16 15:00 23:00 07:00 Intake Total 0 ml Output Total 700 ml Balance -700 ml Intake Oral 0 ml Output Urine Total 700 ml # Voids 1 Result Diagram: 11/19/16 0525 11/19/16 0525 Imaging Last Impressions Chest X-Ray 11/18/16 0000 Signed Impressions: Service Date/Time: Friday, November 18, 2016 11:31 - CONCLUSION: No acute disease. Olegario Bertrand MD FACR A/P Problem List: (1) Pancreatitis Status: Acute Plan: - Pt admitted with abdominal pain and nausea and elevated lipase over 15,000 consistent with acute pancreatitis. - Etiology for the pancreatitis is unclear, possible alcohol related - CT Abd/pelvis (11/18) --> prominent gallbladder but otherwise benign appearing abdomen. - gallbladder u/s 11/18 negative today pain persists. lft rising slightly in possible obstructive pattern. lipase trending down. will obtain mrcp to further eval biliary tree and anatomy cont ivf and npo increase prn pain meds dvt prophylaxis. (2) Hyponatremia Status: Acute Plan: - Likely related to poor po intake - give IVF - (3) HTN (hypertension), benign Status: Chronic Plan: bp on low side. hold home meds. (4) Diabetes Status: Chronic Plan: - Hold OHA - NovoLog SSI - Accu checks Problem Qualifiers (1) Pancreatitis: Qualified Code: K85.20 - Alcohol-induced acute pancreatitis without infection or necrosis (2) Diabetes: Nelson Lang MD Nov 19, 2016 08:13
[2016-11-19] MEDS ORDERED: VALSARTAN 80 MG TAB PO SCH (09:00)
[2016-11-19] MEDS ORDERED: LORazepam 2 MG/ML VIAL IV PUSH PRN (09:00)
[2016-11-19] MEDS ORDERED: PNEUMOCOCCAL POLYVALENT INJ 25 MCG/0.5 ML SYR IM ONE (10:00)
[2016-11-19 12:00] VITALS: BP 118/63; PULSE 76; RESP 20; TEMP 98.9; O2SAT 97
--- NOTE | 2016-11-19 14:39 | RADRPT ---
EXAM DATE/TIME: 11/19/2016 13:07 [facility] COMPARISON: US ABDOMEN - GALLBLADDER, November 18, 2016, 14:51. CT ABDOMEN & PELVIS W/O CONTRAST, November 18, 2016, 11: 23. INDICATIONS : Abdominal pain. MEDICAL HISTORY : Hypertension. Diabetes mellitus type 2. SURGICAL HISTORY : Appendectomy. Total knee replacement, right. Donated right kidney. ENCOUNTER: Initial ACUITY: 1 day PAIN SCORE: 4/10 LOCATION: Right upper quadrant TECHNIQUE: Multiplanar, multisequence magnetic resonance imaging of the abdomen was performed. High-resolution 3D dataset was utilized to reconstruct maximum-intensity projection (MIP) images. FINDINGS: INTRAHEPATIC BILE DUCTS: Within normal limits. No significant anatomical variant is present. EXTRAHEPATIC BILE DUCTS: The common bile duct measures 4 mm No stone or filling defect is identified. GALLBLADDER: No stones, wall thickening, or pericholecystic fluid. LIVER: Normal size and signal intensity. No concerning liver lesion is identified on this non-contrast exam. PANCREAS: The main pancreatic duct is normal in size. There is no significant anatomical variant. Signal inte nsity is within normal limits. No mass is visualized on this non-contrast exam. OTHER: Moderate amount of fluid/edema in the right upper quadrant of the abdomen. Extends from the lateral a spect of the pancreatic head and cecy hepatis region and around the gallbladder and into the right r enal fossa. CONCLUSION: 1. Intrahepatic and extrahepatic biliary ducts within normal limits. 2. Prominent amount of right upper quadrant edema including in the periportal region and pericholecys tic region. No gallstones identified. This finding is new when compared to prior CT of 11/18/2016. May be related to the patient's reported pancreatitis. Acalculus cholecystitis would also be in the diffe rential diagnosis for this finding. Jameel Garcia MD on November 19, 2016 at 14:31 Board Certified Radiologist. This report was verified electronically.
--- NOTE | 2016-11-19 14:53 | EKG ---
Date Performed: 11/18/2016 Time Performed: 10:39:50 PTAGE: 51 years EKG: Sinus rhythm WITH OCCASIONAL SUPRAVENTRICULAR PREMATURE COMPLEXES BORDERLINE ECG Since PREVIOUS TRACING , 09/11/2016, no significant change. PREVIOUS TRACIN09/11/2016 08.53 DOCTOR: Nelson Pascal Interpretating Date/Time 11/19/2016 14:52:17
[2016-11-19 16:00] VITALS: BP 107/61; PULSE 84; RESP 20; TEMP 100.3; O2SAT 96
[2016-11-19 20:00] VITALS: BP 106/55; PULSE 81; RESP 19; TEMP 99.7; O2SAT 96
[2016-11-19] MEDS: TAMSULOSIN HCL 0.4 MG CAP PO SCH (20:34)
[2016-11-20] VITALS (7 sets, daily range): BP systolic 94–108; BP diastolic 55–69; PULSE 65–90; RESP 18–20; TEMP 96.6–101.2; O2SAT 95–98
[2016-11-20] MEDS: ACETAMINOPHEN 325 MG TAB PO PRN ×2 (04:43→18:13)
[2016-11-20] MEDS: MORPHINE SULFATE 4 MG/ML INJ IV PUSH PRN (04:43)
[2016-11-20] MEDS: DEXT 5%-NACL 0.9% 1000 ML INJ 1,000 ML IV SCH ×2 (05:00→11:53)
[2016-11-20] MEDS: INSULIN ASPART SUPPLEMENTAL SCALE SQ SCH ×4 (06:14→20:28)
[2016-11-20] MEDS: ATORVASTATIN 40 MG TAB PO SCH (07:25)
[2016-11-20] MEDS ORDERED: PIPERACIL-TAZO 3.375 GM PREMIX 50 ML IV SCH (07:45)
--- NOTE | 2016-11-20 08:15 | HHI.PR ---
Subjective Remarks pain better controlled. Objective Vitals heart reg lung cta abd ruq tender. greenfield sign. bs ext no edema Vital Signs Date Time Temp Pulse Resp B/P Pulse Ox O2 Delivery O2 Flow Rate FiO2 11/20/16 06:36 98.1 11/20/16 04:00 101.2 78 19 108/59 97 11/20/16 00:00 99.3 90 18 99/55 95 11/19/16 20:00 99.7 81 19 106/55 96 11/19/16 16:00 100.3 84 20 107/61 96 11/19/16 12:00 98.9 76 20 118/63 97 11/19/16 11/19/16 11/20/16 15:00 23:00 07:00 Intake Total 0 ml 1100 ml 1306 ml Output Total 1000 ml 300 ml 350 ml Balance -1000 ml 800 ml 956 ml Intake Oral 0 ml 0 ml IV Total 1100 ml 1306 ml Output Urine Total 1000 ml 300 ml 350 ml # Voids 3 # Bowel Movements 0 Result Diagram: 11/19/16 0525 11/19/16 0525 Imaging Last Impressions Chest X-Ray 11/18/16 0000 Signed Impressions: Service Date/Time: Friday, November 18, 2016 11:31 - CONCLUSION: No acute disease. Olegario Bertrand MD FACR A/P Problem List: (1) Pancreatitis Status: Acute Plan: - Pt admitted with abdominal pain and nausea and elevated lipase over 15,000 consistent with acute pancreatitis. - Etiology for the pancreatitis is unclear, possible alcohol related - CT Abd/pelvis (11/18) --> prominent gallbladder but otherwise benign appearing abdomen. - gallbladder u/s 11/18 negative -MRCP 11/19.. development of pericholecystic fluid..?acalculous cholecystitis vs pancreatitis overall pain better. tender over gallbladder today. more fever check blood cx and start abx cont pain meds npo and ivf gi/gen surg eval pending labs today dvt prophylaxis. (2) Hyponatremia Status: Acute Plan: - Likely related to poor po intake - give IVF - (3) HTN (hypertension), benign Status: Chronic Plan: bp on low side. hold home meds. (4) Diabetes Status: Chronic Plan: - Hold OHA - NovoLog SSI - Accu checks Problem Qualifiers (1) Pancreatitis: Qualified Code: K85.20 - Alcohol-induced acute pancreatitis without infection or necrosis (2) Diabetes: Nelson Lang MD Nov 20, 2016 08:15
[2016-11-20 08:44] LABS: BICARBONATE 26.4 MEQ/L (21.0-32.0); POTASSIUM 3.7 MEQ/L (3.5-5.1)
[2016-11-20 08:47] LABS: INDIRECT BILIRUBIN 0.8 MG/DL (0.0-0.8); TOTAL BILIRUBIN ADULT 1.2 MG/DL (0.2-1.0)
--- NOTE | 2016-11-20 10:25 | PD.CONS ---
HPI History of Present Illness This is a 51 year old male who presented to the ER with c/o epigastric abdominal pain and nausea. Patient reports epigastric pain is constant and has been present since November 17. Describes pain as sharp and stabbing. Reports pain is radiating to RUQ. Last colonoscopy "over 5 years ago," showed polyps, which were benign per patient. States he is due for FU colonoscopy. Never had EGD. Continues to have nausea, but no emesis. Denies melena or hematochezia. Patient with medical history significant for diabetes and hypertension. Reports he drinks about 4-5 beers daily. (Jewell Yost) PFSH Past Medical History Hypertension Diabetes Hyperlipidemia History of pancreatitis Past Surgical History Total knee replacement, right Nephrectomy in 1997 (organ donation) (Jewell Yost) Coded Allergies: CALEB Inhibitors (Verified Allergy, Unknown, Swelling, 11/18/16) Medications Current Medications Medications (Trade) Dose Ordered Sig/Gilbert Route PRN Reason Start Time Stop Time Status Last Admin Dose Admin Sodium Chloride (NS Flush) 2 ml UNSCH PRN IV FLUSH FLUSH AFTER USING IV ACCESS 11/18/16 11:00 Morphine Sulfate (Morphine Inj) 2 mg Q3H PRN IV PUSH pain 3 to 5 11/18/16 12:30 11/19/16 02:45 Acetaminophen (Tylenol) 650 mg Q4H PRN PO fever or headache 11/18/16 12:30 11/20/16 04:43 Ondansetron HCl (Zofran Inj) 4 mg Q6H PRN IV nausea 11/18/16 12:30 11/18/16 23:40 Atorvastatin Calcium (Lipitor) 40 mg DAILY PO 11/19/16 09:00 11/20/16 07:25 Dextrose (D50w (Vial) Inj) 25 ml UNSCH PRN IV PUSH HYPOGLYCEMIA - SEE COMMENTS 11/18/16 13:15 Glucagon (Glucagon Inj) 1 mg UNSCH PRN OTHER HYPOGLYCEMIA-SEE COMMENTS 11/18/16 13:15 Tamsulosin HCl 0.4 mg 0.4 mg HS PO 11/18/16 21:00 11/19/16 20:34 Dextrose/Sodium Chloride (D5W-NS 1000 ml Inj) 1,000 ml @ 125 mls/hr Q8H IV 11/18/16 21:00 11/20/16 05:00 Morphine Sulfate 4 mg 4 mg Q3H PRN IV PUSH pain 6 to 10 11/19/16 09:00 11/20/16 04:43 Piperacillin Sod/ Tazobactam Sod (Zosyn 3.375 Gm Premix) 50 ml @ 100 mls/hr Q6H IV 11/20/16 09:00 Family History Noncontributory Social History Tobacco: 1/2 PPD x 30+ years, did quit for a period of 10 years ETOH: 4-5 beers per day Illicit Drugs: Denies (Jewell Yost) Review of Systems Constitutional: DENIES: Diaphoretic episodes, Fatigue, Fever, Weight gain, Weight loss, Chills, Dizziness, Change in appetite, Night Sweats Endocrine: DENIES: Polydipsia, Polyuria Eyes: DENIES: Blurred vision, Photosensitivity, Double Vision Ears, nose, mouth, throat: DENIES: Hearing loss, Vertigo, Oral lesions, Throat pain, Hoarseness Respiratory: DENIES: Cough, Wheezing, Hemoptysis, Sputum production, Shortness of breath Cardiovascular: DENIES: Chest pain, Palpitations, Syncope, Lower Extremity Edema, Orthopnea, Claudication Gastrointestinal: COMPLAINS OF: Abdominal pain, Nausea, DENIES: Black stools, Bloody stools, Constipation, Diarrhea, Vomiting, Difficulty Swallowing, Anorexia , Odynophagia, Swelling of Abdomen, Heartburn, Hematemesis Genitourinary: DENIES: Urinary frequency, Urinary incontinence, Urgency, Hematuria, Dysuria, Nocturia Musculoskeletal: DENIES: Joint pain, Muscle aches, Stiffness, Joint Swelling, Back pain, Neck pain Integumentary: DENIES: Abnormal pigmentation, Nail changes, Pruritus, Rash, Jaundice Hematologic/lymphatic: DENIES: Bruising, Lymphadenopathy Immunologic/allergic: DENIES: Eczema, Urticaria Neurologic: DENIES: Abnormal gait, Headache, Localized weakness, Paresthesias Psychiatric: DENIES: Anxiety, Confusion, Mood changes, Depression, Agitation, Suicidal Ideation (Jewell Yost) GI Exam Vitals I&O Vital Signs Date Time Temp Pulse Resp B/P Pulse Ox O2 Delivery O2 Flow Rate FiO2 11/20/16 08:00 98.7 75 18 94/69 95 11/20/16 06:36 98.1 11/20/16 04:00 101.2 78 19 108/59 97 11/20/16 00:00 99.3 90 18 99/55 95 11/19/16 20:00 99.7 81 19 106/55 96 11/19/16 16:00 100.3 84 20 107/61 96 11/19/16 12:00 98.9 76 20 118/63 97 I/O 11/19/16 11/19/16 11/19/16 11/20/16 11/20/16 11/20/16 07:00 15:00 23:00 07:00 15:00 23:00 Intake Total 0 ml 0 ml 1100 ml 1306 ml Output Total 700 ml 1000 ml 300 ml 350 ml Balance -700 ml -1000 ml 800 ml 956 ml Intake Oral 0 ml 0 ml 0 ml IV Total 1100 ml 1306 ml Output Urine Total 700 ml 1000 ml 300 ml 350 ml # Voids 3 # Bowel Movements 0 Imaging Last Impressions Cholangiopancreatography MRI 11/19/16 0000 Signed Impressions: Service Date/Time: Saturday, November 19, 2016 13:07 - CONCLUSION: 1. Intrahepatic and extrahepatic biliary ducts within normal limits. 2. Prominent amount of right upper quadrant edema including in the periportal region and pericholecystic region. No gallstones identified. This finding is new when compared to prior CT of 11/18/2016. May be related to the patient's reported pancreatitis. Acalculus cholecystitis would also be in the differential diagnosis for this finding. Jameel Garcia MD Abdomen/Pelvis CT 11/18/16 1054 Signed Impressions: Service Date/Time: Friday, November 18, 2016 11:23 - CONCLUSION: 1. Somewhat prominent gallbladder that appears benign. 2. No other significant abnormality is appreciated. Olegario Bertrand MD FACR Gall Bladder Ultrasound 11/18/16 0000 Signed Impressions: Service Date/Time: Friday, November 18, 2016 14:51 - CONCLUSION: Gallbladder within normal limits. Jameel Garcia MD Chest X-Ray 11/18/16 0000 Signed Impressions: Service Date/Time: Friday, November 18, 2016 11:31 - CONCLUSION: No acute disease. Olegario Bertrand MD FACR Laboratory Test 11/20/16 07:33 Sodium Level 136 MEQ/L Potassium Level 3.7 MEQ/L Chloride Level 103 MEQ/L Carbon Dioxide Level 26.4 MEQ/L Anion Gap 7 MEQ/L Blood Urea Nitrogen 7 MG/DL Creatinine 1.01 MG/DL Estimat Glomerular Filtration 94 ML/MIN Rate Random Glucose 97 MG/DL Calcium Level 8.3 MG/DL Total Bilirubin 1.2 MG/DL Direct Bilirubin 0.4 MG/DL Indirect Bilirubin 0.8 MG/DL Aspartate Amino Transf 35 U/L (AST/SGOT) Alanine Aminotransferase 53 U/L (ALT/SGPT) Alkaline Phosphatase 180 U/L Total Protein 6.3 GM/DL Albumin 2.5 GM/DL Lipase 306 U/L Physical Examination HEENT: PERRLA; normocephalic; atraumatic; no jaundice. NECK: Neck is supple, no JVD, no lymphadenopathy. CHEST: CTA CARDIAC: Regular rate and rhythm with no murmur gallop or rubs. ABDOMEN: Soft, nondistended, epigastric and RUQ tenderness on palpation, bowel sounds x 4 quadrants EXTREMITIES: No clubbing, cyanosis, or edema. SKIN: Normal; no rash; no jaundice. 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 (Jewell Yost) Assessment and Plan Plan ASSESSMENT: Pancreatitis, alcohol related? Patient reports drinking 4-5 beers per day. Lipase initially elevated on admission, but has trended down to normal: 11/18 66803, 11/19 2947, 11/20 306. AST, ALT normal. Alk Phos 180. Abdomen/Pelvis CT 11/18/16--1. Somewhat prominent gallbladder that appears benign. 2. No other significant abnormality is appreciated. Gall Bladder Ultrasound 11/18/16--Gallbladder within normal limits. Cholangiopancreatography MRI 11/19/16--1. Intrahepatic and extrahepatic biliary ducts within normal limits. 2. Prominent amount of right upper quadrant edema including in the periportal region and pericholecystic region. No gallstones identified. This finding is new when compared to prior CT of 11/18/2016. May be related to the patient's reported pancreatitis. Acalculus cholecystitis would also be in the differential diagnosis for this finding. Patient with epigastric and RUQ abdominal pain. PLAN: -EGD tomorrow -Obtain consents -NPO -IV Fluids -Monitor lipase -Further recommendations to follow based on the results of above. Patient seen and examined by myself and Dr. Gardner and this note is written on his behalf. (Jewell Yost) Physician Comments Seen and examined, plan as above, risk, benefits and complications discussed with the patient will proceed in AM. (Gsielle Gardner MD) Jewell Yost Nov 20, 2016 10:25 Giselle Gardner MD Nov 20, 2016 12:38
[2016-11-20] MEDS: PIPERACIL-TAZO 3.375 GM PREMIX 50 ML IV SCH ×3 (11:30→20:23)
--- NOTE | 2016-11-20 15:27 | PD.CONS ---
HPI Service General surgery Consult Requested By Reason for Consult Possible cholecystitis Primary Care Physician Ihsan Lozano MD History of Present Illness Mr. Gross is a 51-year-old male who presented to the hospital 2 days ago with severe sharp epigastric pain. 3 days ago he had milder upper abdominal pain and presented to an urgent care clinic where he was diagnosed with reflux and given a GI cocktail. However his pain worsened and became very severe the next day when he presented to the emergency department. He has since noticed more pain in the right upper abdomen. The patient drinks approximately 4-6 alcoholic beverages each day most recently the night before he went to urgent care. He denies nausea and vomiting. He has never been told he has gallbladder disease and has no history of pancreatitis. He was evaluated in the emergency department and noted to have elevated lipase and yesterday had increase in bilirubin and alkaline phosphatase with mild elevation of transaminases. Today his lipase has normalized and his liver function tests have decreased. His pain is improved although still present. He underwent gallbladder ultrasound which was unremarkable. CT abdomen and pelvis was essentially unremarkable. MRCP showed edema in the right upper quadrant with normal intra-and extrahepatic ducts and again no gallstones. Review of Systems Constitutional: COMPLAINS OF: Fever, DENIES: Chills Eyes: DENIES: Eye inflammation, Eye pain Respiratory: DENIES: Cough, Shortness of breath Cardiovascular: DENIES: Chest pain, Palpitations Gastrointestinal: COMPLAINS OF: Abdominal pain, DENIES: Nausea, Vomiting Musculoskeletal: DENIES: Muscle aches, Stiffness Integumentary: DENIES: Pruritus, Rash Neurologic: DENIES: Paresthesias, Seizures Past Family Social History Past Medical History Hypertension Hyperlipidemia Diabetes mellitus Past Surgical History Right knee surgery Right open donor nephrectomy Appendectomy as child Reported Medications Reported Meds & Active Scripts Active Reported Diovan (Valsartan) 80 Mg Tab 80 Mg PO DAILY Flomax (Tamsulosin HCl) 0.4 Mg Cap 0.4 Mg PO HS Crestor (Rosuvastatin Calcium) 20 Mg Tab 20 Mg PO DAILY Niacin 500 Mg Tab 500 Mg PO DAILY Metformin (Metformin HCl) 500 Mg Tab 500 Mg PO DAILY With a meal Hydrochlorothiazide 25 Mg Tab 25 Mg PO DAILY Allergies: Coded Allergies: CALEB Inhibitors (Verified Allergy, Unknown, Swelling, 11/18/16) Active Ordered Medications Current Medications Medications (Trade) Dose Ordered Sig/Gilbert Route Start Time Stop Time Status Last Admin (NS Flush) 2 ml UNSCH PRN IV FLUSH 11/18/16 11:00 (Morphine Inj) 2 mg Q3H PRN IV PUSH 11/18/16 12:30 11/19/16 02:45 (Tylenol) 650 mg Q4H PRN PO 11/18/16 12:30 11/20/16 04:43 (Zofran Inj) 4 mg Q6H PRN IV 11/18/16 12:30 11/18/16 23:40 (Lipitor) 40 mg DAILY PO 11/19/16 09:00 11/20/16 07:25 (D50w (Vial) Inj) 25 ml UNSCH PRN IV PUSH 11/18/16 13:15 (Glucagon Inj) 1 mg UNSCH PRN OTHER 11/18/16 13:15 Tamsulosin HCl 0.4 mg 0.4 mg HS PO 11/18/16 21:00 11/19/16 20:34 (D5W-NS 1000 ml Inj) 1,000 ml @ 125 mls/hr Q8H IV 11/18/16 21:00 11/20/16 11:53 Morphine Sulfate 4 mg 4 mg Q3H PRN IV PUSH 11/19/16 09:00 11/20/16 04:43 (Zosyn 3.375 Gm Premix) 50 ml @ 100 mls/hr Q6H IV 11/20/16 09:00 11/20/16 11:30 Family History Noncontributory Social History Drinks 4-6 alcoholic beverages daily. Physical Exam Vital Signs Vital Signs Date Time Temp Pulse Resp B/P Pulse Ox O2 Delivery O2 Flow Rate FiO2 11/20/16 12:00 96.6 69 18 96/59 98 11/20/16 08:00 98.7 75 18 94/69 95 11/20/16 06:36 98.1 11/20/16 04:00 101.2 78 19 108/59 97 11/20/16 00:00 99.3 90 18 99/55 95 11/19/16 20:00 99.7 81 19 106/55 96 11/19/16 16:00 100.3 84 20 107/61 96 Physical Exam GENERAL: Awake and alert. No acute distress. Cooperative. HEAD: Normocephalic. Atraumatic. EYES: Pupils equal round and reactive to light bilaterally. No scleral icterus. CHEST: Lungs clear to auscultation bilaterally with no wheezing or rhonchi. No respiratory distress. CARDIOVASCULAR: Regular rate and rhythm. ABDOMEN: Well-healed right subcostal scar and right lower quadrant scar. Nondistended. Moderate to severe tenderness in the right upper quadrant and towards the right flank. Otherwise the abdomen is soft and nontender including the epigastrium. EXTREMITIES: No cyanosis or edema. SKIN: Warm, dry, nonjaundiced. Laboratory Laboratory Tests Test 11/20/16 07:33 Sodium Level 136 Potassium Level 3.7 Chloride Level 103 Carbon Dioxide Level 26.4 Anion Gap 7 Blood Urea Nitrogen 7 Creatinine 1.01 Estimat Glomerular Filtration 94 Rate Random Glucose 97 Calcium Level 8.3 Total Bilirubin 1.2 Direct Bilirubin 0.4 Indirect Bilirubin 0.8 Aspartate Amino Transf 35 (AST/SGOT) Alanine Aminotransferase 53 (ALT/SGPT) Alkaline Phosphatase 180 Total Protein 6.3 Albumin 2.5 Lipase 306 Date/Time Procedure Status Source Growth 11/20/16 11:00 Aerobic Blood Culture Received Blood Peripheral Pending 11/20/16 11:00 Anaerobic Blood Culture Received Blood Peripheral Pending Result Diagram: 11/19/16 0525 11/20/16 0733 Imaging Last Impressions Cholangiopancreatography MRI 11/19/16 0000 Signed Impressions: Service Date/Time: Saturday, November 19, 2016 13:07 - CONCLUSION: 1. Intrahepatic and extrahepatic biliary ducts within normal limits. 2. Prominent amount of right upper quadrant edema including in the periportal region and pericholecystic region. No gallstones identified. This finding is new when compared to prior CT of 11/18/2016. May be related to the patient's reported pancreatitis. Acalculus cholecystitis would also be in the differential diagnosis for this finding. Jameel Garcia MD Abdomen/Pelvis CT 11/18/16 1054 Signed Impressions: Service Date/Time: Friday, November 18, 2016 11:23 - CONCLUSION: 1. Somewhat prominent gallbladder that appears benign. 2. No other significant abnormality is appreciated. Olegario Bertrand MD FACR Gall Bladder Ultrasound 11/18/16 0000 Signed Impressions: Service Date/Time: Friday, November 18, 2016 14:51 - CONCLUSION: Gallbladder within normal limits. Jameel Garcia MD Chest X-Ray 11/18/16 0000 Signed Impressions: Service Date/Time: Friday, November 18, 2016 11:31 - CONCLUSION: No acute disease. Olegario Bertrand MD FACR Assessment and Plan Assessment and Plan 51-year-old male with pancreatitis and elevation of liver function tests. No gallstones were identified on the imaging studies, however, due to his current exam and pattern of the laps I think most likely these findings are related to passage of a stone or sludge. I will follow up EGD performed tomorrow as well as lab work and will consider cholecystectomy in the next few days if he does not have improvement in symptoms. Mihir Reynoso MD Nov 20, 2016 15:27
[2016-11-20] MEDS: TAMSULOSIN HCL 0.4 MG CAP PO SCH (20:25)
[2016-11-21] VITALS (9 sets, daily range): BP systolic 99–105; BP diastolic 55–67; PULSE 52–73; RESP 16–20; TEMP 97.2–101.1; O2SAT 98–100
[2016-11-21] MEDS: PIPERACIL-TAZO 3.375 GM PREMIX 50 ML IV SCH ×4 (04:29→21:15)
[2016-11-21] MEDS: ACETAMINOPHEN 325 MG TAB PO PRN (04:30)
[2016-11-21] MEDS: DEXT 5%-NACL 0.9% 1000 ML INJ 1,000 ML IV SCH ×3 (04:33→21:00)
[2016-11-21] MEDS: INSULIN ASPART SUPPLEMENTAL SCALE SQ SCH ×4 (06:47→21:00)
[2016-11-21 06:57] LABS: AUTOMATED NEUTROPHIL # 6.9 TH/MM3 (1.8-7.7); BASOPHIL % 0.4 % (0.0-2.0); EOSINOPHIL # 0.1 TH/MM3 (0-0.4); EOSINOPHIL % 0.9 % (0.0-4.0); HEMATOCRIT 32.5 % (39.0-51.0); HEMO FLAGS DIFF FINAL; LYMPH % 11.8 % (9.0-44.0); LYMPHOCYTE # 1.1 TH/MM3 (1.0-4.8); MEAN CELL VOLUME 84.5 FL (80.0-100.0); MEAN CORPUSCULAR HEMOGLOBIN 28.9 PG (27.0-34.0); MEAN CORPUSCULAR HGB CONC 34.2 % (32.0-36.0); MONO % 11.1 % (0.0-8.0); NEUT % 75.8 % (16.0-70.0); PLATELET COUNT 231 TH/MM3 (150-450); RED BLOOD COUNT 3.84 MIL/MM3 (4.50-5.90); RED CELL DISTRIBUTION WIDTH 15.6 % (11.6-17.2); WHITE BLOOD COUNT 9.1 TH/MM3 (4.0-11.0)
[2016-11-21 07:15] LABS: BICARBONATE 25.5 MEQ/L (21.0-32.0); POTASSIUM 3.5 MEQ/L (3.5-5.1)
[2016-11-21 07:20] LABS: INDIRECT BILIRUBIN 0.8 MG/DL (0.0-0.8); TOTAL BILIRUBIN ADULT 1.2 MG/DL (0.2-1.0)
--- NOTE | 2016-11-21 08:50 | HHI.PR ---
Subjective Remarks Pt still having fevers, Tmax 101.1 this morning. Pt rather upset this morning about nursing care he has received He feels that overall he is doing better Objective Vitals Vital Signs Date Time Temp Pulse Resp B/P Pulse Ox O2 Delivery O2 Flow Rate FiO2 11/21/16 05:59 98.1 11/21/16 04:00 101.1 73 19 99/56 100 11/21/16 00:00 98.5 61 19 99/55 98 11/20/16 20:00 99.0 65 18 102/56 95 11/20/16 16:00 100.1 78 20 96/56 96 11/20/16 12:00 96.6 69 18 96/59 98 11/20/16 11/20/16 11/21/16 15:00 23:00 07:00 Intake Total 0 ml 1164 ml 1166 ml Output Total 600 ml 675 ml 375 ml Balance -600 ml 489 ml 791 ml Intake Oral 0 ml IV Total 1164 ml 1166 ml Output Urine Total 600 ml 675 ml 375 ml # Voids 2 # Bowel Movements 0 Result Diagram: 11/21/16 0600 11/21/16 0600 Other Results Laboratory Tests Test 11/20/16 11/21/16 07:33 06:00 Sodium Level 136 MEQ/L 137 MEQ/L Potassium Level 3.7 MEQ/L 3.5 MEQ/L Chloride Level 103 MEQ/L 105 MEQ/L Carbon Dioxide Level 26.4 MEQ/L 25.5 MEQ/L Anion Gap 7 MEQ/L 7 MEQ/L Blood Urea Nitrogen 7 MG/DL 7 MG/DL Creatinine 1.01 MG/DL 1.06 MG/DL Estimat Glomerular Filtration 94 ML/MIN 89 ML/MIN Rate Random Glucose 97 MG/DL 98 MG/DL Calcium Level 8.3 MG/DL 8.7 MG/DL Total Bilirubin 1.2 MG/DL 1.2 MG/DL Direct Bilirubin 0.4 MG/DL 0.4 MG/DL Indirect Bilirubin 0.8 MG/DL 0.8 MG/DL Aspartate Amino Transf 35 U/L 23 U/L (AST/SGOT) Alanine Aminotransferase 53 U/L 40 U/L (ALT/SGPT) Alkaline Phosphatase 180 U/L 145 U/L Total Protein 6.3 GM/DL 6.3 GM/DL Albumin 2.5 GM/DL 2.4 GM/DL Lipase 306 U/L White Blood Count 9.1 TH/MM3 Red Blood Count 3.84 MIL/MM3 Hemoglobin 11.1 GM/DL Hematocrit 32.5 % Mean Corpuscular Volume 84.5 FL Mean Corpuscular Hemoglobin 28.9 PG Mean Corpuscular Hemoglobin 34.2 % Concent Red Cell Distribution Width 15.6 % Platelet Count 231 TH/MM3 Mean Platelet Volume 7.5 FL Neutrophils (%) (Auto) 75.8 % Lymphocytes (%) (Auto) 11.8 % Monocytes (%) (Auto) 11.1 % Eosinophils (%) (Auto) 0.9 % Basophils (%) (Auto) 0.4 % Neutrophils # (Auto) 6.9 TH/MM3 Lymphocytes # (Auto) 1.1 TH/MM3 Monocytes # (Auto) 1.0 TH/MM3 Eosinophils # (Auto) 0.1 TH/MM3 Basophils # (Auto) 0.0 TH/MM3 CBC Comment DIFF FINAL Differential Comment Imaging Last Impressions Cholangiopancreatography MRI 11/19/16 0000 Signed Impressions: Service Date/Time: Saturday, November 19, 2016 13:07 - CONCLUSION: 1. Intrahepatic and extrahepatic biliary ducts within normal limits. 2. Prominent amount of right upper quadrant edema including in the periportal region and pericholecystic region. No gallstones identified. This finding is new when compared to prior CT of 11/18/2016. May be related to the patient's reported pancreatitis. Acalculus cholecystitis would also be in the differential diagnosis for this finding. Jameel Garcia MD Abdomen/Pelvis CT 11/18/16 1054 Signed Impressions: Service Date/Time: Friday, November 18, 2016 11:23 - CONCLUSION: 1. Somewhat prominent gallbladder that appears benign. 2. No other significant abnormality is appreciated. Olegario Bertrand MD FACR Gall Bladder Ultrasound 11/18/16 0000 Signed Impressions: Service Date/Time: Friday, November 18, 2016 14:51 - CONCLUSION: Gallbladder within normal limits. Jameel Garcia MD Chest X-Ray 11/18/16 0000 Signed Impressions: Service Date/Time: Friday, November 18, 2016 11:31 - CONCLUSION: No acute disease. Olegario Bertrand MD FACR Objective Remarks General: NAD, AAOx3 Chest: CTA Cardiac: Regular Abd: +BS, soft ND, mild RUQ tenderness Ext: No edema A/P Problem List: (1) Pancreatitis Status: Acute Plan: - Pt admitted with abdominal pain and nausea and elevated lipase over 15,000 consistent with acute pancreatitis. - Etiology for the pancreatitis is unclear, possible alcohol related - CT Abd/pelvis (11/18) --> prominent gallbladder but otherwise benign appearing abdomen. - Gallbladder u/s (11/18) --> negative - MRCP (11/19) --> development of pericholecystic fluid. ?acalculous cholecystitis vs pancreatitis - Overall his pain better but external grinder tender over gallbladder and pt is still febrile - Blood cx (11/20/16) are pending. - Pt started on Zosyn on 11/20/16 - Cont. IVF - Pain control PRN - Pt is still NPO - GI and Gen surg following. - Pt is planned for EGD today - Per Gen Surgery notes, consider cholecystectomy in the next few days if he does not have improvement in symptoms. - DVT prophylaxis. (2) Hyponatremia Status: Acute Plan: - Likely related to poor po intake - give IVF - (3) HTN (hypertension), benign Status: Chronic Plan: - BP on low side. hold home meds. (4) Diabetes Status: Chronic Plan: - Hold OHA - NovoLog SSI - Accu checks Assessment and Plan Patient examined. Assessment and plan formulated with Farnaz Wayne PA-C. I agree with the above. Problem Qualifiers (1) Pancreatitis: Qualified Code: K85.20 - Alcohol-induced acute pancreatitis without infection or necrosis (2) Diabetes: Farnaz Wayne Nov 21, 2016 08:50 Jeevan Gauthier DO Nov 23, 2016 10:02
[2016-11-21] MEDS ORDERED: PROPOFOL 200 MG/20 ML AMP IV ONE (10:19)
--- NOTE | 2016-11-21 10:28 | GIPROC ---
[facility] [address] [facility]. [facility] [place], [address] EGD PROCEDURE REPORT EXAM DATE: 11/21/2016 PATIENT NAME: Ruben Gross MR #: [id number] BIRTHDATE: 1965 ATTENDING: Giselle Gardner MD ORDER #: [id number] ASSISTANT FINANCE DIRECTOR: Bebo London and Kimani Talamantes STATUS: inpatient INDICATIONS: The patient is a 51 yr old male here for an EGD due to epigastric abdominal pain PROCEDURE PERFORMED: EGD w/ biopsy MEDICATIONS: None and Per Anesthesia. TOPICAL ANESTHETIC: none CONSENT: The patient understands the risks and benefits of the procedure and understands that these risks include, but are not limited to: sedation, allergic reaction, infection, perforation and/or bleeding. Alternative means of evaluation and treatment include, among others: physical exam, x-rays, and/or surgical intervention. The patient elects to proceed with this endoscopic procedure. medical equipment was checked for proper function. Hand hygiene and appropriate measures for infection prevention was taken. After the risks, benefits and alternatives of the procedure were thoroughly explained, Informed consent was verified, confirmed and timeout was successfully executed by the treatment team. The patient was anesthetized with topical anesthesia and the Pentax [id number] and [id number] endoscope was introduced through the mouth and advanced to the second portion of the duodenum. Retroflexion was performed and was normal The gastroscope was then slowly withdrawn and removed. ESOPHAGUS: The esophagus was otherwise normal. DUODENUM: The duodenal mucosa appeared normal in the 2nd part of the duodenum and duodenal bulb. STOMACH: There was mild gastritis in the gastric antrum. Multiple biopsies were performed using cold forceps. Sample sent for histology. ADVERSE EVENTS: There were no complications. IMPRESSIONS: 1. The esophagus was otherwise normal 2. Normal duodenal mucosa in the 2nd part of the duodenum and duodenal bulb 3. There was mild gastritis in the gastric antrum; multiple biopsies were performed 4. Retroflexion was performed and was normal RECOMMENDATIONS: 1. Await biopsy results. Biopsy results will not be ready for 7-10 days. If you don't hear from us in two weeks, call our office for biopsy results. 2. Continue PPI PATIENT CONDITION: stable DISPOSITION: Observation REPEAT EXAM: Return as needed for EGD Giselle Gardner MD eSigned: Giselle Gardner MD 11/21/2016 10:27 AM cc: PATIENT NAME: Ruben Gross MR#: [id number]
[2016-11-21] MEDS: ATORVASTATIN 40 MG TAB PO SCH (11:05)
--- NOTE | 2016-11-21 16:24 | HHI.PR ---
Subjective Subjective Notes Mr. Gross feels quite a bit better today. Labs continue to normalize. He has had some liquids and had a BM. Objective Vitals/I&O Vital Signs Date Time Temp Pulse Resp B/P Pulse Ox O2 Delivery O2 Flow Rate FiO2 11/21/16 12:49 97.2 52 20 105/67 98 11/21/16 11:09 21 11/18/16 12:30 Room Air Labs Laboratory Tests Test 11/21/16 06:00 White Blood Count 9.1 Red Blood Count 3.84 Hemoglobin 11.1 Hematocrit 32.5 Mean Corpuscular Volume 84.5 Mean Corpuscular Hemoglobin 28.9 Mean Corpuscular Hemoglobin 34.2 Concent Red Cell Distribution Width 15.6 Platelet Count 231 Mean Platelet Volume 7.5 Neutrophils (%) (Auto) 75.8 Lymphocytes (%) (Auto) 11.8 Monocytes (%) (Auto) 11.1 Eosinophils (%) (Auto) 0.9 Basophils (%) (Auto) 0.4 Neutrophils # (Auto) 6.9 Lymphocytes # (Auto) 1.1 Monocytes # (Auto) 1.0 Eosinophils # (Auto) 0.1 Basophils # (Auto) 0.0 CBC Comment DIFF FINAL Differential Comment Sodium Level 137 Potassium Level 3.5 Chloride Level 105 Carbon Dioxide Level 25.5 Anion Gap 7 Blood Urea Nitrogen 7 Creatinine 1.06 Estimat Glomerular Filtration 89 Rate Random Glucose 98 Calcium Level 8.7 Total Bilirubin 1.2 Direct Bilirubin 0.4 Indirect Bilirubin 0.8 Aspartate Amino Transf 23 (AST/SGOT) Alanine Aminotransferase 40 (ALT/SGPT) Alkaline Phosphatase 145 Total Protein 6.3 Albumin 2.4 Date/Time Procedure Status Source Growth 11/20/16 11:00 Aerobic Blood Culture - Preliminary Resulted Blood Peripheral NO GROWTH IN 1 DAY 11/20/16 11:00 Anaerobic Blood Culture - Preliminary Resulted Blood Peripheral NO GROWTH IN 1 DAY Radiology Last Impressions Cholangiopancreatography MRI 11/19/16 0000 Signed Impressions: Service Date/Time: Saturday, November 19, 2016 13:07 - CONCLUSION: 1. Intrahepatic and extrahepatic biliary ducts within normal limits. 2. Prominent amount of right upper quadrant edema including in the periportal region and pericholecystic region. No gallstones identified. This finding is new when compared to prior CT of 11/18/2016. May be related to the patient's reported pancreatitis. Acalculus cholecystitis would also be in the differential diagnosis for this finding. Jameel Garcia MD Abdomen/Pelvis CT 11/18/16 1054 Signed Impressions: Service Date/Time: Friday, November 18, 2016 11:23 - CONCLUSION: 1. Somewhat prominent gallbladder that appears benign. 2. No other significant abnormality is appreciated. Olegario Bertrand MD FACR Gall Bladder Ultrasound 11/18/16 0000 Signed Impressions: Service Date/Time: Friday, November 18, 2016 14:51 - CONCLUSION: Gallbladder within normal limits. Jameel Garcia MD Chest X-Ray 11/18/16 0000 Signed Impressions: Service Date/Time: Friday, November 18, 2016 11:31 - CONCLUSION: No acute disease. Olegario Bertrand MD FACR Narrative Exam NAD nonlabored breathing A/P Assessment and Plan 51 yo M with pancreatitis, elevated LFTs. No stones or sludge on imaging. He may have had gallstone pancreatitis. However, no stones or sludge were seen on imaging and he is improving. I gave him the option of cholecystectomy now or outpatient follow up and he desires to f/u as outpatient. I will see him in two weeks and likely repeat and ultrasound in a few months as long as he does not have recurrence of symptoms. I would recommend 3-5 days lev/flagyl after dc. Mihir Reynoso MD Nov 21, 2016 16:24
[2016-11-21] MEDS: TAMSULOSIN HCL 0.4 MG CAP PO SCH (21:15)
[2016-11-22] VITALS (7 sets, daily range): BP systolic 101–122; BP diastolic 57–76; PULSE 52–72; RESP 16–20; TEMP 97.6–99.3; O2SAT 95–99
[2016-11-22] MEDS: PIPERACIL-TAZO 3.375 GM PREMIX 50 ML IV SCH ×2 (03:14→08:22)
[2016-11-22] MEDS: DEXT 5%-NACL 0.9% 1000 ML INJ 1,000 ML IV SCH ×3 (05:00→21:00)
[2016-11-22] MEDS: INSULIN ASPART SUPPLEMENTAL SCALE SQ SCH ×4 (05:17→21:00)
[2016-11-22 07:04] LABS: AUTOMATED NEUTROPHIL # 5.7 TH/MM3 (1.8-7.7); BASOPHIL % 0.4 % (0.0-2.0); EOSINOPHIL # 0.2 TH/MM3 (0-0.4); EOSINOPHIL % 1.8 % (0.0-4.0); HEMATOCRIT 34.8 % (39.0-51.0); HEMO FLAGS DIFF FINAL; LYMPH % 21.9 % (9.0-44.0); LYMPHOCYTE # 1.9 TH/MM3 (1.0-4.8); MEAN CELL VOLUME 85.3 FL (80.0-100.0); MEAN CORPUSCULAR HEMOGLOBIN 27.7 PG (27.0-34.0); MEAN CORPUSCULAR HGB CONC 32.5 % (32.0-36.0); MONO % 10.7 % (0.0-8.0); NEUT % 65.2 % (16.0-70.0); PLATELET COUNT 230 TH/MM3 (150-450); RED BLOOD COUNT 4.08 MIL/MM3 (4.50-5.90); WHITE BLOOD COUNT 8.7 TH/MM3 (4.0-11.0)
[2016-11-22 07:35] LABS: ALT (GPT) 38 U/L (12-78); ANION GAP 8 MEQ/L (5-15); AST (GOT) 21 U/L (15-37); BICARBONATE 24.6 MEQ/L (21.0-32.0); BLOOD UREA NITROGEN 5 MG/DL (7-18); CHLORIDE 104 MEQ/L (98-107); GLOMERULAR FILTRATION RATE 87 ML/MIN (>89); POTASSIUM 3.5 MEQ/L (3.5-5.1); SODIUM (NA) 137 MEQ/L (136-145)
[2016-11-22 07:38] LABS: ALKALINE PHOSPHATASE 144 U/L (45-117); TOTAL BILIRUBIN ADULT 0.9 MG/DL (0.2-1.0)
[2016-11-22] MEDS: ATORVASTATIN 40 MG TAB PO SCH (08:21)
--- NOTE | 2016-11-22 08:48 | HHI.DS ---
Discharge Summary Admission Date Nov 18, 2016 at 12:31 Discharge Date: Nov 22, 2016 Admitting Diagnosis pancreatitis, mild hyponatremia (1) Pancreatitis Diagnosis: Principal (2) Hyponatremia Diagnosis: Secondary (3) HTN (hypertension), benign Diagnosis: Secondary (4) Diabetes Diagnosis: Secondary Consultants Dr. Cyndy Gardner - GI Dr. Mihir Reynoso - General Surgery Procedures EGD (11/21/16) --> Mild gastritis Brief History Mr. Gross is a pleasant 51 y/o AAM with diabetes, HTN and tobacco use who presented to the ED at [facility] on 11/18/16 with complaints of abdominal pain and nausea. He describes the pain as a sharp, stabbing in the epigastric area. Patient went to a walk-in clinic yesterday received a GI cocktail that improved his symptoms some. Patient reports associated nausea, but denies vomiting. Pt ate one time yesterday but can't say that the pain was worse after eating. This morning after drinking coffee his pain worsened significantly and this prompted him to come to the ED for further evaluation. Denies any chest pain, fevers, shortness of breath, back pain, numbness or tingling. Pt reports that yesterday his stools were very green but denies any melena or BRBPR. Patient reports that he does drink a 4-5 beers daily, no increased frequency recently. No new medications or medication changes. No recent illnesses. Pts labs at admission [place] [address] abd/pelvis showed a somewhat prominent gallbladder but otherwise benign appearing abdomen. CBC/BMP: 11/22/16 0632 11/22/16 0632 Significant Findings Laboratory Tests Test 11/20/16 11/21/16 11/22/16 07:33 06:00 06:32 Calcium Level 8.3 MG/DL (8.5-10.1) Total Bilirubin 1.2 MG/DL 1.2 MG/DL (0.2-1.0) (0.2-1.0) Direct Bilirubin 0.4 MG/DL 0.4 MG/DL (0.0-0.2) (0.0-0.2) Alkaline Phosphatase 180 U/L 145 U/L 144 U/L (45-117) (45-117) (45-117) Total Protein 6.3 GM/DL 6.3 GM/DL (6.4-8.2) (6.4-8.2) Albumin 2.5 GM/DL 2.4 GM/DL 2.5 GM/DL (3.4-5.0) (3.4-5.0) (3.4-5.0) Red Blood Count 3.84 MIL/MM3 4.08 MIL/MM3 (4.50-5.90) (4.50-5.90) Hemoglobin 11.1 GM/DL 11.3 GM/DL (13.0-17.0) (13.0-17.0) Hematocrit 32.5 % 34.8 % (39.0-51.0) (39.0-51.0) Neutrophils (%) (Auto) 75.8 % (16.0-70.0) Monocytes (%) (Auto) 11.1 % 10.7 % (0.0-8.0) (0.0-8.0) Monocytes # (Auto) 1.0 TH/MM3 (0-0.9) Blood Urea Nitrogen 5 MG/DL (7-18) Estimat Glomerular Filtration 87 ML/MIN (>89) Rate Imaging Last Impressions Cholangiopancreatography MRI 11/19/16 0000 Signed Impressions: Service Date/Time: Saturday, November 19, 2016 13:07 - CONCLUSION: 1. Intrahepatic and extrahepatic biliary ducts within normal limits. 2. Prominent amount of right upper quadrant edema including in the periportal region and pericholecystic region. No gallstones identified. This finding is new when compared to prior CT of 11/18/2016. May be related to the patient's reported pancreatitis. Acalculus cholecystitis would also be in the differential diagnosis for this finding. Jameel Garcia MD Abdomen/Pelvis CT 11/18/16 1054 Signed Impressions: Service Date/Time: Friday, November 18, 2016 11:23 - CONCLUSION: 1. Somewhat prominent gallbladder that appears benign. 2. No other significant abnormality is appreciated. Olegario Bertrand MD FACR Gall Bladder Ultrasound 11/18/16 0000 Signed Impressions: Service Date/Time: Friday, November 18, 2016 14:51 - CONCLUSION: Gallbladder within normal limits. Jameel Garcia MD Chest X-Ray 11/18/16 0000 Signed Impressions: Service Date/Time: Friday, November 18, 2016 11:31 - CONCLUSION: No acute disease. Olegario Bertrand MD FACR PE at Discharge General: NAD, AAOx3 Chest: CTA Cardiac: Regular Abd: +BS, soft ND, mild RUQ tenderness Ext: No edema Hospital Course Pt admitted with abdominal pain and nausea and elevated lipase over 15,000 consistent with acute pancreatitis. Etiology for the pancreatitis is unclear, possible alcohol related vs. passed gallstone. CT Abd/pelvis (11/18) --> prominent gallbladder but otherwise benign appearing abdomen. Gallbladder u/s () --> negative. On 11/19/16 the pts LFTs triston slightly in possible obstructive pattern but lipase trended down. So MRCP (11/19) was ordered and noted development of pericholecystic fluid. ?acalculous cholecystitis vs pancreatitis. GI and general Surgery were consulted. - Pt started on Zosyn on 11/20/16 as he developed some fevers. Blood cx (11/20/16) with no growth x 1 day. Pt underwent evaluation with EGD on 11/21/16 which noted mild gastritis otherwise normal. Pts diet was advanced to full liquids on 11/21 which he tolerated well. Pts last documented fever was on 11/21/16 @ 0400 which was 101 degrees. General surgery felt that he may have had gallstone pancreatitis. However, no stones or sludge were seen on imaging. Pt was given the option of cholecystectomy inpatient vs. outpatient follow up and he desired to f/u as outpatient. Pt will followup with Dr. Reynoso in two weeks and likely repeat an ultrasound in a few months as long as he does not have recurrence of symptoms. Pt was also recommend 3-5 days lev/flagyl following discharge. Pts BP has been running low/normal during this admission off his HCTZ. This will not be resumed at discharge but he is to monitor his BP at home daily and keep a log to give to his PCP. He may need to resume this the further he gets from this hospitalization. Pt will need to followup with his PCP, Dr. Ihsan Lozano, in 1 week Pt will need to followup with Dr. Reynoso in 2 weeks. Pt will need to followup with [facility] in 2 weeks. Pt Condition on Discharge: Stable Discharge Disposition: Discharge Home Discharge Instructions DIET: Follow Instructions for: Diabetic Diet Activities you can perform: Regular-No Restrictions Follow up Referrals: Gastroenterology - 2 Weeks @ [facility] PCP Follow-up - [address] Ihsan Lozano Surgical - 2 Weeks with Mihir Reynoso MD New Medications: Levofloxacin (Levofloxacin) 500 Mg Tablet 500 MG PO DAILY Infection #5 Ref 0 TAB Metronidazole (Flagyl) 500 Mg Tab 500 MG PO TID Infection #15 Ref 0 TAB Continued Medications: Metformin (Metformin) 500 Mg Tab 500 MG PO DAILY With a meal Blood Sugar Management #30 Ref 0 TAB Niacin (Niacin) 500 Mg Tab 500 MG PO DAILY Cholesterol Management #30 Ref 0 TAB Rosuvastatin (Crestor) 20 Mg Tab 20 MG PO DAILY Cholesterol Management #30 Ref 0 TAB Tamsulosin (Flomax) 0.4 Mg Cap 0.4 MG PO HS Manage Prostate Problems #30 Ref 0 CAP Valsartan (Diovan) 80 Mg Tab 80 MG PO DAILY #30 Ref 0 TAB Discontinued Medications: Hydrochlorothiazide (Hydrochlorothiazide) 25 Mg Tab 25 MG PO DAILY #30 Ref 0 TAB Farnaz Wayne Nov 22, 2016 08:48
--- NOTE | 2016-11-22 08:50 | HHI.DCPOC ---
Discharge Care Plan Diagnosis: (1) Pancreatitis (2) HTN (hypertension), benign (3) Hyponatremia (4) Diabetes Goals to Promote Your Health - Pt will complete 12 days of Flagyl 500mg three times daily following discharge. - Pt blood pressure has been running low/normal during this admission off his HCTZ. This will not be resumed at discharge but he is to monitor his BP at home daily and keep a log to give to his PCP. He may need to resume this the further he gets from this hospitalization. - Pt will need to followup with his PCP, Dr. Ihsan Lozano, in 1 week, call for an appt. - Pt will need to followup with Dr. Reynoso in 2 weeks, call for an appt. - Pt will need to followup with [facility] in 2 weeks, call for an appt. Directions to Meet Your Goals Take your medications as prescribed Follow your dietary instruction Follow activity as directed Keep your appointments as scheduled Take your immunizations and boosters as scheduled If your symptoms worsen call your PCP, if no PCP go to Urgent Care Center or Emergency Room Smoking is Dangerous to Your Health. Avoid second hand smoke Call the 24-hour hour crisis hotline for domestic abuse at Farnaz Wayne Nov 22, 2016 08:50 Jeevan Gauthier DO Nov 23, 2016 22:04
--- NOTE | 2016-11-22 09:40 | HHI.GIFU ---
Subjective Remarks Doing well and tolerated diet well. Objective Vitals I&O Vital Signs Date Time Temp Pulse Resp B/P Pulse Ox O2 Delivery O2 Flow Rate FiO2 11/22/16 08:30 97.9 52 20 104/58 97 11/22/16 04:00 99.0 60 16 101/57 95 11/22/16 00:00 99.3 72 16 102/60 97 11/21/16 21:19 21 11/21/16 20:00 98.7 64 16 100/61 98 11/21/16 16:00 98.3 54 18 105/58 98 11/21/16 12:49 97.2 52 20 105/67 98 11/21/16 11:09 98 21 11/21/16 10:35 74 18 94/61 95 11/21/16 10:34 77 18 96/63 97 11/21/16 10:26 98.5 81 18 96/83 96 11/21/16 09:44 98.1 60 20 101/56 98 I/O 11/21/16 11/21/16 11/21/16 11/22/16 11/22/16 11/22/16 07:00 15:00 23:00 07:00 15:00 23:00 Intake Total 1166 ml 100 ml 600 ml Output Total 375 ml Balance 791 ml 100 ml 600 ml Intake Oral 600 ml IV Total 1166 ml Other 100 ml Output Urine Total 375 ml # Voids 6 1 # Bowel Movements 5 Laboratory Laboratory Tests Test 11/22/16 06:32 White Blood Count 8.7 Red Blood Count 4.08 Hemoglobin 11.3 Hematocrit 34.8 Mean Corpuscular Volume 85.3 Mean Corpuscular Hemoglobin 27.7 Mean Corpuscular Hemoglobin 32.5 Concent Red Cell Distribution Width 16.0 Platelet Count 230 Mean Platelet Volume 7.6 Neutrophils (%) (Auto) 65.2 Lymphocytes (%) (Auto) 21.9 Monocytes (%) (Auto) 10.7 Eosinophils (%) (Auto) 1.8 Basophils (%) (Auto) 0.4 Neutrophils # (Auto) 5.7 Lymphocytes # (Auto) 1.9 Monocytes # (Auto) 0.9 Eosinophils # (Auto) 0.2 Basophils # (Auto) 0.0 CBC Comment DIFF FINAL Differential Comment Sodium Level 137 Potassium Level 3.5 Chloride Level 104 Carbon Dioxide Level 24.6 Anion Gap 8 Blood Urea Nitrogen 5 Creatinine 1.08 Estimat Glomerular Filtration 87 Rate Random Glucose 78 Calcium Level 8.7 Total Bilirubin 0.9 Aspartate Amino Transf 21 (AST/SGOT) Alanine Aminotransferase 38 (ALT/SGPT) Alkaline Phosphatase 144 Total Protein 6.6 Albumin 2.5 Date/Time Procedure Status Source Growth 11/20/16 11:00 Aerobic Blood Culture - Preliminary Resulted Blood Peripheral NO GROWTH IN 1 DAY 11/20/16 11:00 Anaerobic Blood Culture - Preliminary Resulted Blood Peripheral NO GROWTH IN 1 DAY Physical Exam HEENT: Pupils round and reactive to light; normocephalic; atraumatic; no jaundice. Throat is clear. NECK: Neck is supple, no JVD, no lymphadenopathy. CHEST: Chest is clear to auscultation and percussion. CARDIAC: Regular rate and rhythm with no murmur gallop or rubs. ABDOMEN: Soft, nondistended, nontender; no hepatosplenomegaly; bowel sounds are present in all four quadrants. EXTREMITIES: No clubbing, cyanosis, or edema. Assessment and Plan Plan ASSESSMENT: - Pancreatitis - Abnormal LFT's, alcohol related? Patient reports drinking 4-5 beers per day. Lipase initially elevated on admission, but has trended down to normal: 11/18 82544, 11/19 2947, 11/20 306. AST, ALT normal. Alk Phos 180. Abdomen/Pelvis CT 11/18/16--1. Somewhat prominent gallbladder that appears benign. 2. No other significant abnormality is appreciated. Gall Bladder Ultrasound 11/18/16--Gallbladder within normal limits. Cholangiopancreatography MRI 11/19/16--1. Intrahepatic and extrahepatic biliary ducts within normal limits. 2. Prominent amount of right upper quadrant edema including in the periportal region and pericholecystic region. No gallstones identified. This finding is new when compared to prior CT of 11/18/2016. May be related to the patient's reported pancreatitis. Acalculus cholecystitis would also be in the differential diagnosis for this finding. Patient with epigastric and RUQ abdominal pain. PLAN: - SKIP - Await biopsy results - Follow with surgical team regarding cholecystectomy - Continue PPI - Avoid ETOH and repeat LFT as outpatient - Stable from GI point of view Giselle Gardner MD Nov 22, 2016 09:40
[2016-11-22 12:08] LABS: C. DIFF EPI 027 PRESUMPTIVE NEGATIVE (NEGATIVE)
--- NOTE | 2016-11-22 12:54 | HHI.PR ---
Subjective Remarks Pt had been planned for discharge today but he reportedly started having diarrhea last night, upwards of 8BMs Pt felt that this was related to the antibiotics as he would have a few BMs after each dose of the antibiotics starting yesterday evening. No blood noted. Afebrile since 11/21/16 @ 0400AM Objective Vitals Vital Signs Date Time Temp Pulse Resp B/P Pulse Ox O2 Delivery O2 Flow Rate FiO2 11/22/16 12:37 98.1 62 20 110/71 99 11/22/16 08:30 97.9 52 20 104/58 97 11/22/16 04:00 99.0 60 16 101/57 95 11/22/16 00:00 99.3 72 16 102/60 97 11/21/16 21:19 21 11/21/16 20:00 98.7 64 16 100/61 98 11/21/16 16:00 98.3 54 18 105/58 98 11/21/16 12:49 97.2 52 20 105/67 98 11/21/16 11/21/16 11/22/16 15:00 23:00 07:00 Intake Total 100 ml 600 ml Balance 100 ml 600 ml Intake Oral 600 ml Other 100 ml # Voids 6 1 # Bowel Movements 5 Result Diagram: 11/22/16 0632 11/22/16 0632 Other Results Laboratory Tests Test 11/21/16 11/22/16 11/22/16 06:00 06:32 09:15 White Blood Count 9.1 TH/MM3 8.7 TH/MM3 Red Blood Count 3.84 MIL/MM3 4.08 MIL/MM3 Hemoglobin 11.1 GM/DL 11.3 GM/DL Hematocrit 32.5 % 34.8 % Mean Corpuscular Volume 84.5 FL 85.3 FL Mean Corpuscular Hemoglobin 28.9 PG 27.7 PG Mean Corpuscular Hemoglobin 34.2 % 32.5 % Concent Red Cell Distribution Width 15.6 % 16.0 % Platelet Count 231 TH/MM3 230 TH/MM3 Mean Platelet Volume 7.5 FL 7.6 FL Neutrophils (%) (Auto) 75.8 % 65.2 % Lymphocytes (%) (Auto) 11.8 % 21.9 % Monocytes (%) (Auto) 11.1 % 10.7 % Eosinophils (%) (Auto) 0.9 % 1.8 % Basophils (%) (Auto) 0.4 % 0.4 % Neutrophils # (Auto) 6.9 TH/MM3 5.7 TH/MM3 Lymphocytes # (Auto) 1.1 TH/MM3 1.9 TH/MM3 Monocytes # (Auto) 1.0 TH/MM3 0.9 TH/MM3 Eosinophils # (Auto) 0.1 TH/MM3 0.2 TH/MM3 Basophils # (Auto) 0.0 TH/MM3 0.0 TH/MM3 CBC Comment DIFF FINAL DIFF FINAL Differential Comment Sodium Level 137 MEQ/L 137 MEQ/L Potassium Level 3.5 MEQ/L 3.5 MEQ/L Chloride Level 105 MEQ/L 104 MEQ/L Carbon Dioxide Level 25.5 MEQ/L 24.6 MEQ/L Anion Gap 7 MEQ/L 8 MEQ/L Blood Urea Nitrogen 7 MG/DL 5 MG/DL Creatinine 1.06 MG/DL 1.08 MG/DL Estimat Glomerular Filtration 89 ML/MIN 87 ML/MIN Rate Random Glucose 98 MG/DL 78 MG/DL Calcium Level 8.7 MG/DL 8.7 MG/DL Total Bilirubin 1.2 MG/DL 0.9 MG/DL Direct Bilirubin 0.4 MG/DL Indirect Bilirubin 0.8 MG/DL Aspartate Amino Transf 23 U/L 21 U/L (AST/SGOT) Alanine Aminotransferase 40 U/L 38 U/L (ALT/SGPT) Alkaline Phosphatase 145 U/L 144 U/L Total Protein 6.3 GM/DL 6.6 GM/DL Albumin 2.4 GM/DL 2.5 GM/DL Stool C. difficile Toxin (PCR) POSITIVE Stl C. difficile Toxin PRESUMPTIVE Epiderm 027 NEGATIVE Imaging Last Impressions Cholangiopancreatography MRI 11/19/16 0000 Signed Impressions: Service Date/Time: Saturday, November 19, 2016 13:07 - CONCLUSION: 1. Intrahepatic and extrahepatic biliary ducts within normal limits. 2. Prominent amount of right upper quadrant edema including in the periportal region and pericholecystic region. No gallstones identified. This finding is new when compared to prior CT of 11/18/2016. May be related to the patient's reported pancreatitis. Acalculus cholecystitis would also be in the differential diagnosis for this finding. Jameel Garcia MD Abdomen/Pelvis CT 11/18/16 1054 Signed Impressions: Service Date/Time: Friday, November 18, 2016 11:23 - CONCLUSION: 1. Somewhat prominent gallbladder that appears benign. 2. No other significant abnormality is appreciated. Olegario Bertrand MD FACR Gall Bladder Ultrasound 11/18/16 0000 Signed Impressions: Service Date/Time: Friday, November 18, 2016 14:51 - CONCLUSION: Gallbladder within normal limits. Jameel Garcia MD Chest X-Ray 11/18/16 0000 Signed Impressions: Service Date/Time: Friday, November 18, 2016 11:31 - CONCLUSION: No acute disease. Olegario Bertrand MD FACR Objective Remarks General: NAD, AAOx3 Chest: CTA Cardiac: Regular Abd: +BS, soft ND, mild RUQ tenderness Ext: No edema Procedures EGD (11/21/16) --> Mild gastritis A/P Problem List: (1) Pancreatitis Status: Acute Plan: - Pt admitted with abdominal pain and nausea and elevated lipase over 15,000 consistent with acute pancreatitis. - Etiology for the pancreatitis is unclear, possible alcohol related - CT Abd/pelvis (11/18) --> prominent gallbladder but otherwise benign appearing abdomen. - Gallbladder u/s (11/18) --> negative - MRCP (11/19) --> development of pericholecystic fluid. ?acalculous cholecystitis vs pancreatitis - Overall his pain better but force variation equipment tender over gallbladder and pt is still febrile - Blood cx (11/20/16) with NGTD. - Zosyn stopped on 11/22/16 - Cont. IVF - Pain control PRN - GI and Gen surg following. - EGD on 11/21/16 with noted gastritis. - Pt developed diarrhea on 11/21/16 during the night and reportedly had 8BMs overnight and this morning - Stools checked for C. diff and are positive. - We will have to hold discharge and start Flagyl 500mg po Q8H and see if his BMs slow down overnight and re-evaluate tomorrow morning. - DVT prophylaxis. (2) C. difficile diarrhea Status: Acute Plan: - See above. (3) Hyponatremia Status: Acute Plan: - Likely related to poor po intake - give IVF - (4) HTN (hypertension), benign Status: Chronic Plan: - BP on low side. hold home meds. (5) Diabetes Status: Chronic Plan: - Hold OHA - NovoLog SSI - Accu checks Assessment and Plan Patient examined. Assessment and plan formulated with Farnaz Wayne PA-C. I agree with the above. C. Dif tox PCR was positive start PO flagyl If pt remains stable, will d/c to home in AM Problem Qualifiers (1) Pancreatitis: Qualified Code: K85.20 - Alcohol-induced acute pancreatitis without infection or necrosis (2) Diabetes: Farnaz Wayne Nov 22, 2016 12:54 Jeevan Gauthier DO Nov 23, 2016 10:04
[2016-11-22 13:04] LABS: C. DIFF TOXIN PCR POSITIVE (NEGATIVE)
[2016-11-22] MEDS: metroNIDAZOLE 500 MG TAB PO SCH ×2 (14:15→21:54)
[2016-11-22] MEDS: TAMSULOSIN HCL 0.4 MG CAP PO SCH (21:54)
[2016-11-23] VITALS: BP 94/53; PULSE 59; RESP 16; TEMP 98.1; O2SAT 97
[2016-11-23 04:30] VITALS: BP 112/61; PULSE 53; RESP 16; TEMP 97.5; O2SAT 98
[2016-11-23] MEDS: metroNIDAZOLE 500 MG TAB PO SCH (04:42)
[2016-11-23] MEDS: INSULIN ASPART SUPPLEMENTAL SCALE SQ SCH (04:44)
[2016-11-23] MEDS: DEXT 5%-NACL 0.9% 1000 ML INJ 1,000 ML IV SCH (05:00)
[2016-11-23 08:00] VITALS: BP 111/73; PULSE 81; RESP 16; TEMP 96.3; O2SAT 98
[2016-11-23] MEDS: ATORVASTATIN 40 MG TAB PO SCH (08:17)
[2016-11-23] MEDS ORDERED: METR-1 PO (08:35)
--- NOTE | 2016-11-23 11:44 | HHI.DS ---
Discharge Summary Admission Date Nov 18, 2016 at 12:31 Discharge Date: Nov 23, 2016 Admitting Diagnosis pancreatitis, mild hyponatremia (1) Pancreatitis Diagnosis: Principal (2) Hyponatremia Diagnosis: Secondary (3) HTN (hypertension), benign Diagnosis: Secondary (4) Diabetes Diagnosis: Secondary (5) C. difficile diarrhea Diagnosis: Secondary Consultants Dr. Cyndy Gardner - GI Dr. Mihir Reynoso - General Surgery Procedures EGD (11/21/16) --> Mild gastritis Brief History Mr. Gross is a pleasant 51 y/o AAM with diabetes, HTN and tobacco use who presented to the ED at [facility] on 11/18/16 with complaints of abdominal pain and nausea. He describes the pain as a sharp, stabbing in the epigastric area. Patient went to a walk-in clinic yesterday received a GI cocktail that improved his symptoms some. Patient reports associated nausea, but denies vomiting. Pt ate one time yesterday but can't say that the pain was worse after eating. This morning after drinking coffee his pain worsened significantly and this prompted him to come to the ED for further evaluation. Denies any chest pain, fevers, shortness of breath, back pain, numbness or tingling. Pt reports that yesterday his stools were very green but denies any melena or BRBPR. Patient reports that he does drink a 4-5 beers daily, no increased frequency recently. No new medications or medication changes. No recent illnesses. Pts labs at admission [place] [id number]. [place] abd/pelvis showed a somewhat prominent gallbladder but otherwise benign appearing abdomen. CBC/BMP: 11/22/16 0632 11/22/16 0632 Significant Findings Laboratory Tests Test 11/21/16 11/22/16 11/22/16 06:00 06:32 09:15 Red Blood Count 3.84 MIL/MM3 4.08 MIL/MM3 (4.50-5.90) (4.50-5.90) Hemoglobin 11.1 GM/DL 11.3 GM/DL (13.0-17.0) (13.0-17.0) Hematocrit 32.5 % 34.8 % (39.0-51.0) (39.0-51.0) Neutrophils (%) (Auto) 75.8 % (16.0-70.0) Monocytes (%) (Auto) 11.1 % 10.7 % (0.0-8.0) (0.0-8.0) Monocytes # (Auto) 1.0 TH/MM3 (0-0.9) Total Bilirubin 1.2 MG/DL (0.2-1.0) Direct Bilirubin 0.4 MG/DL (0.0-0.2) Alkaline Phosphatase 145 U/L 144 U/L (45-117) (45-117) Total Protein 6.3 GM/DL (6.4-8.2) Albumin 2.4 GM/DL 2.5 GM/DL (3.4-5.0) (3.4-5.0) Blood Urea Nitrogen 5 MG/DL (7-18) Estimat Glomerular Filtration 87 ML/MIN (>89) Rate Stool C. difficile Toxin (PCR) POSITIVE (NEGATIVE) Imaging Last Impressions Cholangiopancreatography MRI 11/19/16 0000 Signed Impressions: Service Date/Time: Saturday, November 19, 2016 13:07 - CONCLUSION: 1. Intrahepatic and extrahepatic biliary ducts within normal limits. 2. Prominent amount of right upper quadrant edema including in the periportal region and pericholecystic region. No gallstones identified. This finding is new when compared to prior CT of 11/18/2016. May be related to the patient's reported pancreatitis. Acalculus cholecystitis would also be in the differential diagnosis for this finding. Jameel Garcia MD Abdomen/Pelvis CT 11/18/16 1054 Signed Impressions: Service Date/Time: Friday, November 18, 2016 11:23 - CONCLUSION: 1. Somewhat prominent gallbladder that appears benign. 2. No other significant abnormality is appreciated. Olegario Bertrand MD FACR Gall Bladder Ultrasound 11/18/16 0000 Signed Impressions: Service Date/Time: Friday, November 18, 2016 14:51 - CONCLUSION: Gallbladder within normal limits. Jameel Garcia MD Chest X-Ray 11/18/16 0000 Signed Impressions: Service Date/Time: Friday, November 18, 2016 11:31 - CONCLUSION: No acute disease. Olegario Bertrand MD FACR PE at Discharge General: NAD, AAOx3 Chest: CTA Cardiac: Regular Abd: +BS, soft ND, mild RUQ tenderness Ext: No edema Hospital Course Pt admitted with abdominal pain and nausea and elevated lipase over 15,000 consistent with acute pancreatitis. Etiology for the pancreatitis is unclear, possible alcohol related vs. passed gallstone. CT Abd/pelvis (11/18) --> prominent gallbladder but otherwise benign appearing abdomen. Gallbladder u/s () --> negative. On 11/19/16 the pts LFTs triston slightly in possible obstructive pattern but lipase trended down. So MRCP (11/19) was ordered and noted development of pericholecystic fluid. ?acalculous cholecystitis vs pancreatitis. GI and general Surgery were consulted. - Pt started on Zosyn on 11/20/16 as he developed some fevers. Blood cx (11/20/16) with no growth x 1 day. Pt underwent evaluation with EGD on 11/21/16 which noted mild gastritis otherwise normal. Pts diet was advanced to full liquids on 11/21 which he tolerated well. Pts last documented fever was on 11/21/16 @ 0400 which was 101 degrees. General surgery felt that he may have had gallstone pancreatitis. However, no stones or sludge were seen on imaging. Pt was given the option of cholecystectomy inpatient vs. outpatient follow up and he desired to f/u as outpatient. Pt will followup with Dr. Reynoso in two weeks and likely repeat an ultrasound in a few months as long as he does not have recurrence of symptoms. Pt had been planned for discharge on 11/22/16 but he reportedly started having diarrhea the evening prior, upwards of 8 BMs. Pt felt that this was related to the antibiotics as he would have a few BMs after each dose of the antibiotics starting yesterday evening. No blood noted. Afebrile since 11/21/16 @ 0400AM. Stool studies were checked and were positive for C. diff. Pt was started on Flagyl 500mg po TID. He did well on the Flagyl and his Bms slowed down to started to form back up prior to discharge. Pt will be discharged on Flagyl 500mg TID x 12 more days. Pts BP has been running low/normal during this admission off his HCTZ. This will not be resumed at discharge but he is to monitor his BP at home daily and keep a log to give to his PCP. He may need to resume this the further he gets from this hospitalization. Pt will need to followup with his PCP, Dr. Ihsan Lozano, in 1 week Pt will need to followup with Dr. Reynoso in 2 weeks. Pt will need to followup with [facility] in 2 weeks. Pt Condition on Discharge: Stable Discharge Disposition: Discharge Home Discharge Instructions DIET: Follow Instructions for: Diabetic Diet Activities you can perform: Regular-No Restrictions Follow up Referrals: Gastroenterology - 2 Weeks @ [facility] PCP Follow-up - [address] Ihsan Lozano Surgical - 2 Weeks with Mihir Reynoso MD New Medications: Metronidazole (Flagyl) 500 Mg Tab 500 MG PO TID Infection #36 Ref 0 TAB Continued Medications: Metformin (Metformin) 500 Mg Tab 500 MG PO DAILY With a meal Blood Sugar Management #30 Ref 0 TAB Niacin (Niacin) 500 Mg Tab 500 MG PO DAILY Cholesterol Management #30 Ref 0 TAB Rosuvastatin (Crestor) 20 Mg Tab 20 MG PO DAILY Cholesterol Management #30 Ref 0 TAB Tamsulosin (Flomax) 0.4 Mg Cap 0.4 MG PO HS Manage Prostate Problems #30 Ref 0 CAP Valsartan (Diovan) 80 Mg Tab 80 MG PO DAILY #30 Ref 0 TAB Discontinued Medications: Hydrochlorothiazide (Hydrochlorothiazide) 25 Mg Tab 25 MG PO DAILY #30 Ref 0 TAB Additional Information Patient examined. Assessment and plan formulated with Farnaz Wayne PA-C. I agree with the above. Farnaz Wayne Nov 23, 2016 11:44 Jeevan Gauthier DO Nov 23, 2016 22:04
== END 2016-11-23 13:01 | disposition home or self-care (01) | DRG 439 ==
LOC: NEPD 10:19 → NEDA 12:31 → HOCB 13:47
PROVIDERS: ADMIT Hospitalist; ATTEND Hospitalist
PROC: 0DB68ZX Excision of Stomach, Via Natural or Artificial Opening Endoscopic, Diagnostic (ICD-10-PCS; principal; 2016-11-21 10:08)
DX: K85.90 Acute pancreatitis without necrosis or infection, unspecified (principal); E87.1 Hypo-osmolality and hyponatremia; A04.7 Enterocolitis due to Clostridium difficile; I10 Essential (primary) hypertension; E78.5 Hyperlipidemia, unspecified; E11.9 Type 2 diabetes mellitus without complications; K29.70 Gastritis, unspecified, without bleeding; F17.210 Nicotine dependence, cigarettes, uncomplicated; K21.9 Gastro-esophageal reflux disease without esophagitis; N40.0 Benign prostatic hyperplasia without lower urinary tract symptoms; Z90.5 Acquired absence of kidney; Z79.84 Long term (current) use of oral hypoglycemic drugs
CPT/HCPCS: 71010; 74176; 74181; 76377; 76705; 80048; 80053; 80061; 80076; 81001; 82948; 83690; 84484; 85025; 85610; 85730; 87040; 87493; 88305; 88312; 90732; 93005; 96361; 96374; 96375; C9113; J2060; J2270; J2405; J2543; J7030; J7042

== ENCOUNTER 2017-07-25 04:49 | Emergency (ER) | payer OTHER ==
[~2017-07-25] VITALS: Ht 185.4 cm; Wt 85.0 kg
[~2017-07-25 04:49] MED LIST changes: -CYCL1TAB29 PO; -GLUCTAB PO; -HYDR-2768 PO; -HYDR-3533 PO; +METF500T PO; +METR-1 PO; -TAMS0.4C67 PO; +TAMS5CAP PO; -Z.0.COMMODE-3:1; -Z.0.WALKERFRONT
[2017-07-25 04:52] VITALS: BP 136/61; PULSE 60; RESP 18; TEMP 97.8; O2SAT 98
[2017-07-25 05:05] VITALS: BP 113/68; PULSE 54; RESP 16; O2SAT 98
[2017-07-25] MEDS ORDERED: TAMS0.4C4 (05:05)
[2017-07-25] MEDS ORDERED: SAW450CA2 PO (05:05)
[2017-07-25] MEDS ORDERED: ASPI81CH6 CHEW (05:05)
[2017-07-25] MEDS ORDERED: PANT40TA3 PO (05:05)
[2017-07-25 05:34] VITALS: RESP 16; O2SAT 98
[2017-07-25] MEDS ORDERED: RESP: ALBUTEROL 2.5 MG/IPRATROPIUM 0.5 MG NEB (SCH) INH ONE (05:45)
[2017-07-25] MEDS ORDERED: SODIUM CHLORIDE 0.9% FLUSH 10 ML FLUSH IVF PRN (05:45)
[2017-07-25 05:48] VITALS: O2SAT 100
--- NOTE | 2017-07-25 05:53 | PD ---
HPI Chief Complaint: Respiratory Symptoms Time Seen by Provider: 05:27 Travel History International Travel<30 days: No Contact w/Intl Traveler<30days: No Traveled to known affect area: No History of Present Illness HPI The patient is a 52 year old male who presents to the [facility] emergency department with a history of cough, congestion, that began 2 days ago. The patient reports that the congestion seems to get worse when he lies flat. He reports that he has dyspnea on exertion. He denies having any chest pressure or chest pain other than with coughing. He reports that he is also had a posttussive emesis when his coughing is bad. He reports that his cough is productive of white to brown sputum. He reports that he does smoke a half a pack of cigarettes per day. He denies ever using an inhaler in the past. He denies having any history of DVT, PE, coronary artery disease, or congestive heart failure. On review of systems, the patient denies having any known fevers , neck pain, abdominal pain, diarrhea, urinary symptoms, or neurologic symptoms. [facility] Past Medical History Narrative Medical The patient's past medical history is significant for pancreatitis, history of hypertension, diabetes mellitus, hyperlipidemia. Hx Anticoagulant Therapy: Yes Arthritis: No Asthma: No Autoimmune Disease: No Blood Disorders: No Anxiety: No Depression: No Heart Rhythm Problems: No Cancer: No Cardiac Catheterization: Yes Cardiovascular Problems: Yes (CARDIAC CATH) High Cholesterol: No Chemotherapy: No Chest Pain: Yes Congestive Heart Failure: No COPD: No Cerebrovascular Accident: No Diabetes: Yes Patient Takes Glucophage: Yes Diminished Hearing: No Endocrine: Yes Gastrointestinal Disorders: Yes (GERD) GERD: No Glaucoma: No Genitourinary: Yes (HAS ONLY ONE KIDNEY - RIGHT DONATED ; BPH) Headaches: No Hepatitis: No Hiatal Hernia: No Heparin Induced Thrombocytopen: No Hypertension: Yes Immune Disorder: No Kidney Stones: No Medical other: No Musculoskeletal: Yes (ARTHRITIS ; BULGING DISC) Neurologic: No Psychiatric: No Reproductive: No Respiratory: No Immunizations Current: Yes Myocardial Infarction: No Radiation Therapy: No Renal Failure: No Seizures: No Sickle Cell Disease: No Sleep Apnea: No Thyroid Disease: No Ulcer: No Tetanus Vaccination: > 5 Years Influenza Vaccination: Yes Past Surgical History Narrative Surgical The patient's past surgical history is significant for a right total knee replacement, nephrectomy for organ donation, appendectomy. Abdominal Surgery: Yes (APPENDECTOMY) AICD: No Appendectomy: Yes Body Medical Devices: NONE Coronary Artery Bypass Graft: No Genitourinary Surgery: Yes (KIDNEY DONOR RIGHT KIDNEY) Insulin Pump: No Joint Replacement: Yes (Right knee replacement 2014) Pacemaker: No Other Surgery: Yes Family History Family Myocardial Infarction: Yes Family Hypercholesterolemia: Yes Social History Alcohol Use: No Tobacco Use: Yes (/2 ppd) Substance Use: No Allergies-Medications (Allergen,Severity, Reaction): Coded Allergies: benazepril (Unverified Allergy, Unknown, Swelling, 07/25/17) captopril (Unverified Allergy, Unknown, Swelling, 07/25/17) enalaprilat (Unverified Allergy, Unknown, Swelling, 07/25/17) fosinopril (Unverified Allergy, Unknown, Swelling, 07/25/17) lisinopril (Unverified Allergy, Unknown, Swelling, 07/25/17) quinapril (Unverified Allergy, Unknown, Swelling, 07/25/17) Reported Meds & Prescriptions Reported Meds & Active Scripts Active Reported Aspirin Low Dose (Aspirin) 81 Mg Chew 81 Mg CHEW DAILY Tamsulosin (Tamsulosin HCl) 0.4 Mg Cap 0.4 Mg HS Saw [place] ([place]) 450 Mg Cap 450 Mg PO DAILY Pantoprazole (Pantoprazole Sodium) 40 Mg Tab 40 Mg PO DAILY Diovan (Valsartan) 80 Mg Tab 80 Mg PO DAILY Flomax (Tamsulosin HCl) 0.4 Mg Cap 0.4 Mg PO HS Crestor (Rosuvastatin Calcium) 20 Mg Tab 20 Mg PO DAILY Niacin 500 Mg Tab 500 Mg PO DAILY Metformin (Metformin HCl) 500 Mg Tab 500 Mg PO DAILY With a meal Review of Systems Except as stated in HPI: all other systems reviewed are Neg General / Constitutional: No: Fever Eyes: No: Visual changes HENT: Positive: Congestion, No: Headaches Cardiovascular: Positive: Chest Pain or Discomfort (Chest pain with cough), Dyspnea on exertion Respiratory: Positive: Cough, Shortness of Breath Gastrointestinal: Positive: Vomiting (Posttussive emesis), No: Nausea, Diarrhea , Abdominal Pain Genitourinary: No: Dysuria Musculoskeletal: No: Pain Skin: No Rash Neurologic: No: Weakness, Focal Abnormalities, Change in Mentation, Slurred Speech, Sensory Disturbance Psychiatric: No: Depression Endocrine: No: Polydipsia Hematologic/Lymphatic: No: Easy Bruising Physical Exam Narrative General: The patient is a well-developed well-nourished male in no acute distress. Head and Neck exam: Head is normocephalic atraumatic. Eyes: EOMI, pupils are equal round and reactive to light. Nose: Midline septum with pink mucous membranes Mouth: Dentition unremarkable. Moist mucus membranes. Posterior oropharynx is not erythematous. No tonsillar hypertrophy. Uvula midline. Airway patent. Neck: No palpable lymphadenopathy. No nuchal rigidity. No thyromegaly. Cardiovascular: Regular rate and rhythm without murmurs, gallops, or rubs. Lungs: The patient has scattered rhonchi on the left that clear with coughing, coarse breath sounds throughout bilateral lung [place], soft expiratory wheezes audible anteriorly. No crackles audible. No accessory muscle use. No tripoding. No paroxysmal abdominal breathing. Abdomen: Soft, without tenderness to palpation in all 4 quadrants of the abdomen. No guarding, rebound, or rigidity. Normal bowel sounds are audible. No tenderness on palpation of McBurney's point. Extremities: No clubbing, cyanosis, or edema. 2+ pulses in all 4 extremities. No calf tenderness on palpation. Back: No spinous process tenderness to palpation. No costovertebral angle tenderness to palpation. Neurologic Exam: Grossly nonfocal. Skin Exam: No rash noted. Intact skin that is warm and dry. Data Data Last Documented VS Vital Signs Date Time Temp Pulse Resp B/P (MAP) Pulse Ox O2 Delivery O2 Flow Rate FiO2 07/25/17 05:48 100 21 07/25/17 05:34 Nasal Cannula 2.00 07/25/17 05:34 16 07/25/17 05:05 54 07/25/17 04:52 97.8 Orders Orders Complete Blood Count With Diff (07/25/17 05:32) Comprehensive Metabolic Panel (07/25/17 05:32) B-Type Natriuretic Peptide (07/25/17 05:32) D-Dimer (07/25/17 05:32) Act Partial Throm Time (Ptt) (07/25/17 05:32) Prothrombin Time / Inr (Pt) (07/25/17 05:32) Magnesium (Mg) (07/25/17 05:32) Ckmb (Isoenzyme) Profile (07/25/17 05:32) Troponin I (07/25/17 05:32) Influenzae A/B Antigen (07/25/17 05:32) Blood Culture (07/25/17 05:32) Iv Access Insert/Monitor (07/25/17 05:32) Electrocardiogram (07/25/17 05:32) Ecg Monitoring (07/25/17 05:32) Oximetry (07/25/17 05:32) Oxygen Administration (07/25/17 05:32) Chest, Single Ap (07/25/17 05:32) Sodium Chloride 0.9% Flush (Ns Flush) (07/25/17 05:45) Albuterol-Ipratropium Neb (Duoneb Neb) (07/25/17 05:45) CKMB (07/25/17 05:00) CKMB% (07/25/17 05:00) Ct Pulmonary Angiogram (07/25/17 06:37) Ceftriaxone Inj (Rocephin Inj) (07/25/17 06:45) Azithromycin Inj (Zithromax Inj) (07/25/17 06:45) Iohexol 350 Inj (Omnipaque 350 Inj) (07/25/17 07:23) Labs Laboratory Tests Test 07/25/17 05:00 White Blood Count 12.9 TH/MM3 Red Blood Count 4.83 MIL/MM3 Hemoglobin 13.9 GM/DL Hematocrit 41.5 % Mean Corpuscular Volume 85.9 FL Mean Corpuscular Hemoglobin 28.8 PG Mean Corpuscular Hemoglobin Concent 33.5 % Red Cell Distribution Width 17.1 % Platelet Count 315 TH/MM3 Mean Platelet Volume 7.2 FL Neutrophils (%) (Auto) 53.2 % Lymphocytes (%) (Auto) 37.7 % Monocytes (%) (Auto) 6.8 % Eosinophils (%) (Auto) 1.9 % Basophils (%) (Auto) 0.4 % Neutrophils # (Auto) 6.8 TH/MM3 Lymphocytes # (Auto) 4.9 TH/MM3 Monocytes # (Auto) 0.9 TH/MM3 Eosinophils # (Auto) 0.2 TH/MM3 Basophils # (Auto) 0.1 TH/MM3 CBC Comment DIFF FINAL Differential Comment Prothrombin Time 9.8 SEC Prothromb Time International Ratio 1.0 RATIO Activated Partial Thromboplast Time 23.6 SEC D-Dimer Quantitative (PE/DVT) 0.80 MG/L FEU Blood Urea Nitrogen 16 MG/DL Creatinine 1.27 MG/DL Random Glucose 84 MG/DL Total Protein 7.7 GM/DL Albumin 3.7 GM/DL Calcium Level 8.9 MG/DL Magnesium Level 1.9 MG/DL Alkaline Phosphatase 100 U/L Aspartate Amino Transf (AST/SGOT) 17 U/L Alanine Aminotransferase (ALT/SGPT) 34 U/L Total Bilirubin 0.5 MG/DL Sodium Level 139 MEQ/L Potassium Level 3.9 MEQ/L Chloride Level 104 MEQ/L Carbon Dioxide Level 30.2 MEQ/L Anion Gap 5 MEQ/L Estimat Glomerular Filtration Rate 72 ML/MIN Total Creatine Kinase 284 U/L Creatine Kinase MB 2.1 NG/ML Troponin I LESS THAN 0.02 NG/ML B-Type Natriuretic Peptide 14 PG/ML MDM Medical Decision Making Medical Screen Exam Complete: Yes Emergency Medical Condition: Yes Medical Record Reviewed: Yes Differential Diagnosis Pneumonia, versus COPD, versus bronchitis, versus influenza, versus new onset congestive heart failure, versus acute coronary syndrome Narrative Course During the course of the patient's emergency department visit, the patient's history, examination, and differential diagnosis were reviewed with the patient. The patient was placed on a manager respiratory care with oximetry and frequent blood pressure monitoring. The patient had IV access obtained and blood work sent for analysis. The patient had an EKG done on arrival that shows a sinus bradycardia rate of 50 with a sinus arrhythmia, no acute ST segment elevation is noted. T waves are inverted in V1 aVL. QRS duration is 78 ms, QTC 346 ms The patient was initially provided a DuoNeb 1. The patient's laboratory studies were reviewed and remarkable for a white count of 12.9, hemoglobin 13.9, platelets 315 with a normal differential, CMP is remarkable for GFR of 72, cardiac enzymes within normal limits, BNP is 14 ruling out congestive heart failure, PT PTT unremarkable, d-dimer elevated at 0.80, CTA to rule out PE has been ordered. Radiology studies were reviewed and remarkable for a chest x-ray that shows mild by basilar opacity representing either atelectasis or mild consolidation. Blood cultures 2 were sent for analysis. The patient was given Rocephin 1 g IV , Zithromax 500 IV. The patient's case was checked out to the oncoming emergency physician to disposition the patient based on the conclusion of his workup. Abigail Sharma MD Jul 25, 2017 05:53
[2017-07-25 05:59] LABS: AUTOMATED NEUTROPHIL # 6.8 TH/MM3 (1.8-7.7); BASOPHIL # 0.1 TH/MM3 (0-0.2); BASOPHIL % 0.4 % (0.0-2.0); EOSINOPHIL # 0.2 TH/MM3 (0-0.4); EOSINOPHIL % 1.9 % (0.0-4.0); HEMATOCRIT 41.5 % (39.0-51.0); HEMOGLOBIN 13.9 GM/DL (13.0-17.0); LYMPH % 37.7 % (9.0-44.0); LYMPHOCYTE # 4.9 TH/MM3 (1.0-4.8); MEAN CELL VOLUME 85.9 FL (80.0-100.0); MEAN CORPUSCULAR HEMOGLOBIN 28.8 PG (27.0-34.0); MEAN CORPUSCULAR HGB CONC 33.5 % (32.0-36.0); MEAN PLATELET VOLUME 7.2 FL (7.0-11.0); MONO % 6.8 % (0.0-8.0); MONOCYTE # 0.9 TH/MM3 (0-0.9); NEUT % 53.2 % (16.0-70.0); PLATELET COUNT 315 TH/MM3 (150-450); RED BLOOD COUNT 4.83 MIL/MM3 (4.50-5.90); RED CELL DISTRIBUTION WIDTH 17.1 % (11.6-17.2); WHITE BLOOD COUNT 12.9 TH/MM3 (4.0-11.0)
[2017-07-25 06:08] LABS: PROTHROMBIN TIME - PATIENT 9.8 SEC (9.8-11.6)
--- NOTE | 2017-07-25 06:08 | RADRPT ---
EXAM DATE/TIME: 07/25/2017 05:37 [facility] COMPARISON: CHEST SINGLE AP, November 18, 2016, 11:31. INDICATIONS : Shortness of breath. MEDICAL HISTORY : Hypertension. Gastroesophageal reflux disease. SURGICAL HISTORY : Appendectomy. ENCOUNTER: Initial ACUITY: 1 day PAIN SCORE: 0/10 LOCATION: Bilateral chest FINDINGS: Portable AP view of the chest demonstrates a normal-sized cardiac silhouette. There is mild bibasilar airspace opacity. No pleural effusion or pneumothorax is identified. The bones and soft tissues demo nstrate no acute finding. CONCLUSION: Mild bibasilar opacity representing either atelectasis or mild consolidation. Jaime Berger MD on July 25, 2017 at 6:06 Board Certified Radiologist. This report was verified electronically.
[2017-07-25 06:09] LABS: ALBUMIN 3.7 GM/DL (3.4-5.0); ALT (GPT) 34 U/L (12-78); AST (GOT) 17 U/L (15-37); BICARBONATE 30.2 MEQ/L (21.0-32.0); BLOOD UREA NITROGEN 16 MG/DL (7-18); CALCIUM 8.9 MG/DL (8.5-10.1); CHLORIDE 104 MEQ/L (98-107); CREATININE 1.27 MG/DL (0.60-1.30); GLOMERULAR FILTRATION RATE 72 ML/MIN (>89); GLUCOSE,RANDOM 84 MG/DL (74-106); MAGNESIUM 1.9 MG/DL (1.5-2.5); SODIUM (NA) 139 MEQ/L (136-145)
[2017-07-25 06:11] LABS: D-DIMER 0.8 MG/L FEU (0.00-0.50)
[2017-07-25 06:13] LABS: ALKALINE PHOSPHATASE 100 U/L (45-117); TOTAL BILIRUBIN ADULT 0.5 MG/DL (0.2-1.0); TOTAL PROTEIN 7.7 GM/DL (6.4-8.2); TROPONIN I LESS THAN 0.02 NG/ML (0.02-0.05)
[2017-07-25] MEDS ORDERED: AZITHROMYCIN INJ 500 MG in SODIUM CHLOR 0.9% 250 ML INJ 250 ML IV ONE (06:45)
[2017-07-25] MEDS ORDERED: cefTRIAXone INJ 1,000 MG in SODIUM CHLORIDE 0.9% INJ 100 ML IV ONE (06:45)
[2017-07-25] MEDS ORDERED: IOHEXOL 350 MG/ML 10 ML VIAL (for RAD DIAG) IVCONTRAST ONE (07:23)
--- NOTE | 2017-07-25 07:39 | RADRPT ---
EXAM DATE/TIME: 07/25/2017 07:15 [facility] COMPARISON: CT ABDOMEN & PELVIS W/O CONTRAST, November 18, 2016, 11:23. INDICATIONS : Cough and congestion x 2 days. IV CONTRAST: 70 cc Omnipaque 350 (iohexol) IV RADIATION DOSE: 15.02 CTDIvol (mGy) MEDICAL HISTORY : Diabetes mellitus type 2. Gastroesophageal reflux disease. Hypertension. SURGICAL HISTORY : Appendectomy. Nephrectomy, right. ENCOUNTER: Initial ACUITY: 2 days PAIN SCALE: 0/10 LOCATION: chest TECHNIQUE: Volumetric scanning of the chest was performed using a pulmonary embolism protocol MIP images were re constructed. Using automated exposure control and adjustment of the mA and/or kV according to patien t size, radiation dose was kept as low as reasonably achievable to obtain optimal diagnostic quality images. DICOM format image data is available electronically for review and comparison. Follow-up recommendations for detected pulmonary nodules are based at a minimum on nodule size and pa tient risk factors according to Fleischner Society Guidelines. FINDINGS: PULMONARY ARTERIES: No filling defects are seen in the pulmonary arteries through the segmental level. LUNGS: There is peribronchial prominence and endobronchial material noted in several distal right lower lobe bronchi with associated mild bronchiectasis and mild groundglass opacities. Similar but less promine nt changes in the left lower lobe near the base. PLEURAE: There is no pleural thickening or pleural effusion. MEDIASTINUM: There is good visualization of the great vessels of the middle mediastinum. No evidence of mediastin al or hilar adenopathy/mass. MUSCULOSKELETAL: Degenerative spondylosis of the thoracic spine. MISCELLANEOUS: The visualized upper abdominal organs demonstrate no acute abnormality. CONCLUSION: 1. No CT evidence for pulmonary artery embolism to the subsegmental level. 2. Findings most consistent with bilateral, right greater than left, lower lobe bronchitis with assoc iated volume loss and developing airspace consolidation in the right lower lobe near the base. Adalberto Mills MD on July 25, 2017 at 7:29 Board Certified Radiologist. This report was verified electronically.
[2017-07-25] MEDS ORDERED: ZITHTAB PO (07:53)
--- NOTE | 2017-07-25 07:53 | PD ---
Physical Exam Date Seen by Provider: Jul 25, 2017 Time Seen by Provider: 07:50 Narrative 52-year-old male came to the emergency room with history of cough. He was seen by the previous ER physician. Blood test was done and d-dimer was slightly elevated. She had ordered a CT angiogram of the chest and the sign out to me was to follow-up on the CT scan report. Please refer to her history and physical for further details. Patient had received IV Rocephin and Zithromax for possible bronchitis/atypical pneumonia. CT pulmonary angiogram report is back. Patient does not have any PE but there signs of bronchitis as per the radiologist. Patient will go home with a prescription for Z-Migel. Data Data Last Documented VS Orders Orders Complete Blood Count With Diff (07/25/17 05:32) Comprehensive Metabolic Panel (07/25/17 05:32) B-Type Natriuretic Peptide (07/25/17 05:32) D-Dimer (07/25/17 05:32) Act Partial Throm Time (Ptt) (07/25/17 05:32) Prothrombin Time / Inr (Pt) (07/25/17 05:32) Magnesium (Mg) (07/25/17 05:32) Ckmb (Isoenzyme) Profile (07/25/17 05:32) Troponin I (07/25/17 05:32) Influenzae A/B Antigen (07/25/17 05:32) Blood Culture (07/25/17 05:32) Iv Access Insert/Monitor (07/25/17 05:32) Electrocardiogram (07/25/17 05:32) Ecg Monitoring (07/25/17 05:32) Oximetry (07/25/17 05:32) Oxygen Administration (07/25/17 05:32) Chest, Single Ap (07/25/17 05:32) Sodium Chloride 0.9% Flush (Ns Flush) (07/25/17 05:45) Albuterol-Ipratropium Neb (Duoneb Neb) (07/25/17 05:45) CKMB (07/25/17 05:00) CKMB% (07/25/17 05:00) Ct Pulmonary Angiogram (07/25/17 06:37) Ceftriaxone Inj (Rocephin Inj) (07/25/17 06:45) Azithromycin Inj (Zithromax Inj) (07/25/17 06:45) Iohexol 350 Inj (Omnipaque 350 Inj) (07/25/17 07:23) Ed Discharge Order (07/25/17 07:53) Labs Laboratory Tests Test 07/25/17 05:00 White Blood Count 12.9 TH/MM3 Red Blood Count 4.83 MIL/MM3 Hemoglobin 13.9 GM/DL Hematocrit 41.5 % Mean Corpuscular Volume 85.9 FL Mean Corpuscular Hemoglobin 28.8 PG Mean Corpuscular Hemoglobin Concent 33.5 % Red Cell Distribution Width 17.1 % Platelet Count 315 TH/MM3 Mean Platelet Volume 7.2 FL Neutrophils (%) (Auto) 53.2 % Lymphocytes (%) (Auto) 37.7 % Monocytes (%) (Auto) 6.8 % Eosinophils (%) (Auto) 1.9 % Basophils (%) (Auto) 0.4 % Neutrophils # (Auto) 6.8 TH/MM3 Lymphocytes # (Auto) 4.9 TH/MM3 Monocytes # (Auto) 0.9 TH/MM3 Eosinophils # (Auto) 0.2 TH/MM3 Basophils # (Auto) 0.1 TH/MM3 CBC Comment DIFF FINAL Differential Comment Prothrombin Time 9.8 SEC Prothromb Time International Ratio 1.0 RATIO Activated Partial Thromboplast Time 23.6 SEC D-Dimer Quantitative (PE/DVT) 0.80 MG/L FEU Blood Urea Nitrogen 16 MG/DL Creatinine 1.27 MG/DL Random Glucose 84 MG/DL Total Protein 7.7 GM/DL Albumin 3.7 GM/DL Calcium Level 8.9 MG/DL Magnesium Level 1.9 MG/DL Alkaline Phosphatase 100 U/L Aspartate Amino Transf (AST/SGOT) 17 U/L Alanine Aminotransferase (ALT/SGPT) 34 U/L Total Bilirubin 0.5 MG/DL Sodium Level 139 MEQ/L Potassium Level 3.9 MEQ/L Chloride Level 104 MEQ/L Carbon Dioxide Level 30.2 MEQ/L Anion Gap 5 MEQ/L Estimat Glomerular Filtration Rate 72 ML/MIN Total Creatine Kinase 284 U/L Creatine Kinase MB 2.1 NG/ML Troponin I LESS THAN 0.02 NG/ML B-Type Natriuretic Peptide 14 PG/ML MDM Supervised Visit with [facility]: No Diagnosis Primary Impression: Bronchitis Additional Impression: Needs smoking cessation education Referrals: Primary Care Physician Additional Instruction: Please return to the ER if condition worsens or any other new concerns. Otherwise follow-up with your primary care in couple days. You need to quit smoking in order to feel better. Take the medication as per the prescription direction. Med/Other Pt SpecificInfo: Prescription(s) given Scripts Azithromycin (Zithromax Z-Migel) 250 Mg Dspk 250 MG PO DIRECTED for Infection, #1 DSPK 0 Refills 500 MG (2 tabs) day 1, then 1 tab days 2-5. Prov: Hiral Song MD 07/25/17 Disposition: 01 DISCHARGE HOME Condition: Stable Hiral Song MD Jul 25, 2017 07:53
[2017-07-25 09:10] VITALS: BP 115/74
--- NOTE | 2017-07-25 15:59 | EKG ---
Date Performed: 07/25/2017 Time Performed: 05:06:28 PTAGE: 52 years EKG: SINUS BRADYCARDIA WITH SINUS ARRHYTHMIA POSSIBLE LEFT ATRIAL ENLARGEMENT BORDERLINE ECG Sin ce the prior tracing, there has been no significant change PREVIOUS TRACING : 11/18/2016 10.39 DOCTOR: Joel Velazco Interpretating Date/Time 07/25/2017 15:58:58
== END 2017-07-25 09:27 | disposition home or self-care (01) ==
LOC: NEPE 04:49
DX: J40 Bronchitis, not specified as acute or chronic (principal); E11.9 Type 2 diabetes mellitus without complications; E78.5 Hyperlipidemia, unspecified; I10 Essential (primary) hypertension; F17.210 Nicotine dependence, cigarettes, uncomplicated; N40.0 Benign prostatic hyperplasia without lower urinary tract symptoms; R06.02 Shortness of breath; Z79.84 Long term (current) use of oral hypoglycemic drugs; Z79.899 Other long term (current) drug therapy
CPT/HCPCS: 71045; 71275; 80053; 82550; 82552; 83735; 83880; 84484; 85025; 85379; 85610; 85730; 87040; 87804; 93005; 94664; 96365; 96368; 99285; J0456; J0696; J7050; Q9967

== ENCOUNTER 2017-10-02 16:05 | Observation (INO) | payer OTHER ==
[2017-10-02] VITALS (7 sets, daily range): BP systolic 116–139; BP diastolic 59–73; PULSE 51–61; RESP 15–18; TEMP 97.8–98.6; O2SAT 98–100
[~2017-10-02 16:05] MED LIST changes: +ASPI81CH6 CHEW; -METR-1 PO; +PANT40TA3 PO; +SAW450CA2 PO; +TAMS0.4C4; +ZITHTAB PO
[2017-10-02] MEDS ORDERED: SODIUM CHLORID 0.9% 500 ML INJ 500 ML IV ONE (16:15)
[2017-10-02] MEDS ORDERED: ASPIRIN 325 MG TAB PO ONE (16:15)
[2017-10-02] MEDS ORDERED: NITROGLYCERIN 0.4 MG SL 25 TABS/BTL SL ONE (16:30)
--- NOTE | 2017-10-02 16:43 | RADRPT ---
EXAM DATE/TIME: 10/02/2017 16:21 [facility] COMPARISON: CHEST SINGLE AP, July 25, 2017, 5:37. INDICATIONS : Chest pain, no shortness of breath, possible history of irregular heart beat MEDICAL HISTORY : Hypertension. Gastroesophageal reflux disease. SURGICAL HISTORY : Appendectomy. ENCOUNTER: Initial ACUITY: 2 days PAIN SCORE: 8/10 LOCATION: Bilateral chest FINDINGS: A single view of the chest demonstrates the lungs to be symmetrically aerated without evidence of mas s, infiltrate or effusion. The cardiomediastinal contours are unremarkable. Osseous structures are intact with multilevel degenerative spurring throughout the dorsal spine. CONCLUSION: No acute cardiopulmonary process. Tony Nguyen MD on October 02, 2017 at 16:39 Board Certified Radiologist. This report was verified electronically.
[2017-10-02 16:45] LABS: AUTOMATED NEUTROPHIL # 5.5 TH/MM3 (1.8-7.7); BASOPHIL # 0.1 TH/MM3 (0-0.2); BASOPHIL % 0.8 % (0.0-2.0); EOSINOPHIL # 0.3 TH/MM3 (0-0.4); HEMATOCRIT 41.1 % (39.0-51.0); HEMOGLOBIN 13.8 GM/DL (13.0-17.0); LYMPHOCYTE # 3.4 TH/MM3 (1.0-4.8); MEAN CORPUSCULAR HEMOGLOBIN 29.2 PG (27.0-34.0); MEAN CORPUSCULAR HGB CONC 33.6 % (32.0-36.0); MEAN PLATELET VOLUME 7.5 FL (7.0-11.0); MONO % 7.4 % (0.0-8.0); MONOCYTE # 0.7 TH/MM3 (0-0.9); NEUT % 54.8 % (16.0-70.0); PLATELET COUNT 272 TH/MM3 (150-450); RED BLOOD COUNT 4.73 MIL/MM3 (4.50-5.90); RED CELL DISTRIBUTION WIDTH 16.7 % (11.6-17.2); WHITE BLOOD COUNT 10.1 TH/MM3 (4.0-11.0)
--- NOTE | 2017-10-02 16:48 | PD ---
HPI Chief Complaint: Chest Pain Time Seen by Provider: 16:11 Travel History International Travel<30 days: No Contact w/Intl Traveler<30days: No Traveled to known affect area: No History of Present Illness HPI 52-year-old male the presents to the ED for evaluation of chest pain. Patient comes here stating that he has been having chest pain since about noon today. Per patient the pain radiates to his left arm. Per patient the pain feels like a pressure and sharp. He states that he has had similar pain in the past has been worked up for cardiac with no obvious results. Per patient she has never had a stent or CABG. He denies any history of heart disease. He does have a history of high blood pressure, cholesterol, diabetes. Takes a baby aspirin every day. States having a history also of pancreatitis. Denies any recent travel. Takes no blood thinners. No headache. Currently he is chest pain- free. He denies any fevers chills or sweats. No cough or runny nose. No trauma. Pain per patient is to be 7 out of 10 on mainly in the left chest. Multiple allergies to different medications especially to CALEB inhibitors. PFSH Past Medical History Hx Anticoagulant Therapy: Yes Arthritis: No Asthma: No Autoimmune Disease: No Blood Disorders: No Anxiety: No Depression: No Heart Rhythm Problems: No Cancer: No Cardiac Catheterization: Yes Cardiovascular Problems: Yes (CARDIAC CATH) High Cholesterol: No Chemotherapy: No Chest Pain: Yes Congestive Heart Failure: No COPD: No Cerebrovascular Accident: No Diabetes: Yes Diminished Hearing: No Endocrine: Yes Gastrointestinal Disorders: Yes (GERD) GERD: No Glaucoma: No Genitourinary: Yes (HAS ONLY ONE KIDNEY - RIGHT DONATED ; BPH) Headaches: No Hepatitis: No Hiatal Hernia: No Heparin Induced Thrombocytopen: No Hypertension: Yes Immune Disorder: No Kidney Stones: No Musculoskeletal: Yes (ARTHRITIS ; BULGING DISC) Neurologic: No Psychiatric: No Reproductive: No Respiratory: No Immunizations Current: Yes Myocardial Infarction: No Radiation Therapy: No Renal Failure: No Seizures: No Sickle Cell Disease: No Sleep Apnea: No Thyroid Disease: No Ulcer: No Past Surgical History Abdominal Surgery: Yes (APPENDECTOMY) AICD: No Appendectomy: Yes Body Medical Devices: NONE Coronary Artery Bypass Graft: No Genitourinary Surgery: Yes (KIDNEY DONOR RIGHT KIDNEY) Insulin Pump: No Joint Replacement: Yes (Right knee replacement 2014) Pacemaker: No Other Surgery: Yes Family History Family Hypercholesterolemia: Yes Social History Alcohol Use: No Tobacco Use: Yes (/2 ppd) Substance Use: No Allergies-Medications (Allergen,Severity, Reaction): Coded Allergies: benazepril (Unverified Allergy, Unknown, Swelling, 07/25/17) captopril (Verified Allergy, Unknown, Swelling, 10/02/17) enalaprilat (Verified Allergy, Unknown, Swelling, 10/02/17) fosinopril (Verified Allergy, Unknown, Swelling, 10/02/17) lisinopril (Verified Allergy, Unknown, Swelling, 10/02/17) quinapril (Verified Allergy, Unknown, Swelling, 10/02/17) Reported Meds & Prescriptions Reported Meds & Active Scripts Active Reported Aspirin Low Dose (Aspirin) 81 Mg Chew 81 Mg CHEW DAILY Tamsulosin (Tamsulosin HCl) 0.4 Mg Cap 0.4 Mg HS Saw [place] ([place]) 450 Mg Cap 450 Mg PO DAILY Pantoprazole (Pantoprazole Sodium) 40 Mg Tab 40 Mg PO DAILY Diovan (Valsartan) 80 Mg Tab 80 Mg PO DAILY Flomax (Tamsulosin HCl) 0.4 Mg Cap 0.4 Mg PO DAILY Crestor (Rosuvastatin Calcium) 20 Mg Tab 20 Mg PO DAILY Niacin 500 Mg Tab 500 Mg PO DAILY Metformin (Metformin HCl) 500 Mg Tab 500 Mg PO DAILY With a meal Review of Systems Except as stated in HPI: all other systems reviewed are Neg Physical Exam Narrative GENERAL: SKIN: Warm and dry. HEAD: Atraumatic. Normocephalic. EYES: Pupils equal and round. No scleral icterus. No injection or drainage. ENT: No nasal bleeding or discharge. Mucous membranes pink and moist. Tongue is midline. No uvula deviation. NECK: Trachea midline. No JVD. CARDIOVASCULAR: Regular rate and rhythm. No murmurs, S3, S4. RESPIRATORY: No accessory muscle use. Clear to auscultation. Breath sounds equal bilaterally. GASTROINTESTINAL: Abdomen soft, non-tender, nondistended. Hepatic and splenic margins not palpable. MUSCULOSKELETAL: Extremities without clubbing, cyanosis, or edema. No obvious deformities. Full range of motion of the upper and lower extremities bilaterally. 2+ pulses bilaterally. NEUROLOGICAL: Awake and alert. No obvious cranial nerve deficits. Motor grossly within normal limits. Five out of 5 muscle strength in the arms and legs. Normal speech. PSYCHIATRIC: Appropriate mood and affect; insight and judgment normal. Data Data Last Documented VS Vital Signs Date Time Temp Pulse Resp B/P (MAP) Pulse Ox O2 Delivery O2 Flow Rate FiO2 10/02/17 16:34 16 10/02/17 16:20 97.8 61 119/70 (86) 98 Room Air 117/73 (88) Orders Orders Electrocardiogram (10/02/17 16:12) Ckmb (Isoenzyme) Profile (10/02/17 16:12) Complete Blood Count With Diff (10/02/17 16:12) Comprehensive Metabolic Panel (10/02/17 16:12) Magnesium (Mg) (10/02/17 16:12) Prothrombin Time / Inr (Pt) (10/02/17 16:12) Act Partial Throm Time (Ptt) (10/02/17 16:12) Troponin I (10/02/17 16:12) Lipase (10/02/17 16:12) Chest, Single Ap (10/02/17 16:12) Ecg Monitoring (10/02/17 16:12) Bilateral Bp Monitoring (10/02/17 16:12) Iv Access Insert/Monitor (10/02/17 16:12) Oximetry (10/02/17 16:12) Oxygen Administration (10/02/17 16:12) Aspirin (Aspirin) (10/02/17 16:15) Sodium Chlorid 0.9% 500 Ml Inj (Ns 500 M (10/02/17 16:15) Nitroglycerin Sl (Nitrostat Sl) (10/02/17 16:30) CKMB (10/02/17 16:30) CKMB% (10/02/17 16:30) Admit Order (Ed Use Only) (10/02/17 17:20) Activity Bed Rest With Brp (10/02/17 17:21) Vital Signs (Adult) Q4H (10/02/17 17:21) Cardiac Rhythm .As Directed (10/02/17 17:21) Notify Dr: Other .PRN (10/02/17 17:21) Notify Parameters (10/02/17 17:21) Resp Oxygen Nasal Cannula (10/02/17 ) Diet Npo (10/02/17 Dinner) Ckmb (Isoenzyme) Profile (10/02/17 19:30) Ckmb (Isoenzyme) Profile (10/02/17 22:30) Troponin I (10/02/17 19:30) Troponin I (10/02/17 22:30) Electrocardiogram (10/02/17 19:30) Electrocardiogram (10/02/17 22:30) ^ Obtain (10/02/17 17:21) Sodium Chloride 0.9% Flush (Ns Flush) (10/02/17 17:30) Sodium Chloride 0.9% Flush (Ns Flush) (10/02/17 21:00) Acetaminophen (Tylenol) (10/02/17 17:30) Ondansetron Inj (Zofran Inj) (10/02/17 17:30) Telephone Order Clerk Room Service / Telemetry [id number] (10/02/17 17:21) Labs Laboratory Tests Test 10/02/17 16:30 White Blood Count 10.1 TH/MM3 Red Blood Count 4.73 MIL/MM3 Hemoglobin 13.8 GM/DL Hematocrit 41.1 % Mean Corpuscular Volume 87.0 FL Mean Corpuscular Hemoglobin 29.2 PG Mean Corpuscular Hemoglobin Concent 33.6 % Red Cell Distribution Width 16.7 % Platelet Count 272 TH/MM3 Mean Platelet Volume 7.5 FL Neutrophils (%) (Auto) 54.8 % Lymphocytes (%) (Auto) 34.0 % Monocytes (%) (Auto) 7.4 % Eosinophils (%) (Auto) 3.0 % Basophils (%) (Auto) 0.8 % Neutrophils # (Auto) 5.5 TH/MM3 Lymphocytes # (Auto) 3.4 TH/MM3 Monocytes # (Auto) 0.7 TH/MM3 Eosinophils # (Auto) 0.3 TH/MM3 Basophils # (Auto) 0.1 TH/MM3 CBC Comment DIFF FINAL Differential Comment Prothrombin Time 10.0 SEC Prothromb Time International Ratio 1.0 RATIO Activated Partial Thromboplast Time 25.7 SEC Blood Urea Nitrogen 17 MG/DL Creatinine 1.50 MG/DL Random Glucose 127 MG/DL Total Protein 8.0 GM/DL Albumin 3.7 GM/DL Calcium Level 8.7 MG/DL Magnesium Level 1.8 MG/DL Alkaline Phosphatase 105 U/L Aspartate Amino Transf (AST/SGOT) 24 U/L Alanine Aminotransferase (ALT/SGPT) 42 U/L Total Bilirubin 0.7 MG/DL Sodium Level 139 MEQ/L Potassium Level 4.2 MEQ/L Chloride Level 105 MEQ/L Carbon Dioxide Level 28.4 MEQ/L Anion Gap 6 MEQ/L Estimat Glomerular Filtration Rate 59 ML/MIN Total Creatine Kinase 291 U/L Creatine Kinase MB 3.3 NG/ML Troponin I LESS THAN 0.02 NG/ML Lipase 213 U/L MDM Medical Decision Making Medical Screen Exam Complete: Yes Emergency Medical Condition: Yes Medical Record Reviewed: Yes Interpretation(s) EKG shows sinus rhythm with no sign of acute ischemia or arrhythmia. PVCs noted. CBC & BMP Diagram 10/02/17 16:30 Total Protein 8.0, Albumin 3.7, Calcium Level 8.7, Magnesium Level 1.8, Alkaline Phosphatase 105, Aspartate Amino Transf (AST/SGOT) 24, Alanine Aminotransferase (ALT/SGPT) 42, Total Bilirubin 0.7 troponin and CKMB negative Last Impressions Chest X-Ray 10/02/17 1612 Signed Impressions: Service Date/Time: Monday, October 02, 2017 16:21 - CONCLUSION: No acute cardiopulmonary process. Tony Nguyen MD Differential Diagnosis Chest pain versus atypical chest pain versus pancreatitis versus ACS versus NSTEMI Narrative Course 52-year-old male that presents to the ED for evaluation of chest pain. Patient was properly examined and was found to have signs and symptoms concerning for ACS. Patient does have multiple risk factors for this. Initial EKG did not show any sign of ST elevation or ischemia. Labs and imaging showed what appears to be no sign of acute disease. Patient still having some discomfort on and off. I am definitely concerned for ACS. This time recommend admission for further eval including stress test. Per patient he has not had a stress test in more than 2 years. He does have risk factors including age, being a male, hypertension, high cholesterol and diabetes. This was discussed with the family and patient were in agreement with admission. Patient was admitted to the chest pain center. Orders placed by me. Diagnosis Primary Impression: Chest pain in adult Admitting Information Admitting Physician Requests: Observation Magdy Sahu Oct 02, 2017 16:48
[2017-10-02 17:01] LABS: ALBUMIN 3.7 GM/DL (3.4-5.0); ALT (GPT) 42 U/L (12-78); AST (GOT) 24 U/L (15-37); BICARBONATE 28.4 MEQ/L (21.0-32.0); BLOOD UREA NITROGEN 17 MG/DL (7-18); CALCIUM 8.7 MG/DL (8.5-10.1); CHLORIDE 105 MEQ/L (98-107); GLOMERULAR FILTRATION RATE 59 ML/MIN (>89); GLUCOSE,RANDOM 127 MG/DL (74-106); MAGNESIUM 1.8 MG/DL (1.5-2.5); SODIUM (NA) 139 MEQ/L (136-145)
[2017-10-02 17:08] LABS: ALKALINE PHOSPHATASE 105 U/L (45-117); TOTAL BILIRUBIN ADULT 0.7 MG/DL (0.2-1.0); TROPONIN I LESS THAN 0.02 NG/ML (0.02-0.05)
[2017-10-02] MEDS ORDERED: ACETAMINOPHEN 500 MG CPLT PO PRN (17:30)
[2017-10-02] MEDS ORDERED: SODIUM CHLORIDE 0.9% FLUSH 10 ML FLUSH IV FLUSH PRN (17:30)
[2017-10-02] MEDS ORDERED: ONDANSETRON HCL 4 MG/2 ML VIAL IV PUSH PRN (17:30)
[2017-10-02] MEDS ORDERED: NITROGLYCERIN 0.4 MG SL 25 TABS/BTL SL PRN (18:00)
--- NOTE | 2017-10-02 19:07 | HHI.HP ---
HPI Primary Care Physician Ihsan Lozano MD Chief Complaint Chest pain History of Present Illness 52-year-old male with history of hypertension, diabetes, and hyperlipidemia presents to the emergency room for further evaluation of chest and left arm pain. Onset around noon. Location left anterior chest. Characterized quick, sharp pain accompanying left arm pain, also described as sharp shooting pain. Duration 2-3 seconds. No associated symptoms of nausea, vomiting, dyspnea, or diaphoresis. No precipitating or relieving factors. Denies similar pain in the past. Does endorse remote injury to neck, however denies similar discomfort related to neck injury. Past cervical injury with present left arm numbness and tingling. Currently is chest pain-free. Review of Systems General: No fatigue,weakness, fever, chills, recent illness, or change in appetite. Has been in his general state of health. HEENT: No GONSALES, no vision changes, no nasal congestion or drainage, no dysphasia CV: As stated above. No current chest pain or pressure. No palpitations, intermittent leg pain, or dizziness RESP: No SOB, cough, wheeze, or recent upper respiratory infection. Former smoker, quitting 3 months ago. GI: No nausea, vomiting, or bowel changes. : History of BPH, no dysuria, urgency, frequency EXT: No lower leg edema, no paraesthesias MS: No discomfort or change in ROM. Remote cervical injury. NEURO: No difficulty with balance, LOC, motor/sensory deficits PSYCH: No anxiety, depression SKIN: No rashes, no concerning lesions Past Family Social History Allergies: Coded Allergies: benazepril (Unverified Allergy, Unknown, Swelling, 07/25/17) captopril (Verified Allergy, Unknown, Swelling, 10/02/17) enalaprilat (Verified Allergy, Unknown, Swelling, 10/02/17) fosinopril (Verified Allergy, Unknown, Swelling, 10/02/17) lisinopril (Verified Allergy, Unknown, Swelling, 10/02/17) quinapril (Verified Allergy, Unknown, Swelling, 10/02/17) Past Medical History Type 2 diabetes, hypertension, hyperlipidemia, reports past pancreatitis Past Surgical History Right total knee replacement, 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 Reported Medications Reported Meds & Active Scripts Active Reported Aspirin Low Dose (Aspirin) 81 Mg Chew 81 Mg CHEW DAILY Tamsulosin (Tamsulosin HCl) 0.4 Mg Cap 0.4 Mg HS Saw Pledger ([place] Repens) 450 Mg Cap 450 Mg PO DAILY Pantoprazole (Pantoprazole Sodium) 40 Mg Tab 40 Mg PO DAILY Diovan (Valsartan) 80 Mg Tab 80 Mg PO DAILY Flomax (Tamsulosin HCl) 0.4 Mg Cap 0.4 Mg PO DAILY Crestor (Rosuvastatin Calcium) 20 Mg Tab 20 Mg PO DAILY Niacin 500 Mg Tab 500 Mg PO DAILY Metformin (Metformin HCl) 500 Mg Tab 500 Mg PO DAILY With a meal Active Ordered Medications Current Medications Medications (Trade) Dose Ordered Sig/Gilbert Route Start Time Stop Time Status Last Admin (NS Flush) 2 ml UNSCH PRN IV FLUSH 10/02/17 17:30 (NS Flush) 2 ml BID IV FLUSH 10/02/17 21:00 (Tylenol) 500 mg Q4H PRN PO 10/02/17 17:30 (Zofran Inj) 4 mg Q6H PRN IV PUSH 10/02/17 17:30 (Nitrostat Sl) 0.4 mg Q5M PRN SL 10/02/17 18:00 UNV (Aspirin) 325 mg DAILY PO 10/03/17 09:00 UNV Social History Known diabetes, hypertension, and hyperlipidemia. No known coronary artery disease. Former smoker, quit 3 months ago. 05-saob-rwiw history. . Past cardiac testing 02/15/12 Exercise treadmill testing-walked 10 minutes, testing felt to be nonischemic 11/11/10 Lexiscan-Findings: This study is impaired by a tremendous amount of retained gut activity on both the rest and stress accusations. This could potentially obscure the ischemic process in the inferior wall. Elsewhere, we note satisfactory perfusion. There does appear to be some at least mild decrease in relatively perfusion to the inferior wall, but no clear change in this pattern on resting acquisitions. Wall motion is intact throughout an calculated left ventricular ejection fraction is 59%. Impression: No definite reversible perfusion defects. There does appear to be at least mild relatively diminished perfusion to inferior wall. Significant retained activity generally obscures evaluation of the posterior basal and inferior wall, however. 09/21/06 Cardiac catheterization (Dr. Boothe) Conclusion: 1. Noncardiac chest pain. 2. Normal coronary arteries. Physical Exam Vital Signs Vital Signs Date Time Temp Pulse Resp B/P (MAP) Pulse Ox O2 Delivery O2 Flow Rate FiO2 10/02/17 18:30 97.8 62 17 116/67 (83) 98 10/02/17 18:16 98.2 59 15 116/63 (80) 98 Room Air 10/02/17 17:29 99 21 10/02/17 16:34 16 10/02/17 16:20 97.8 61 17 119/70 (86) 98 Room Air 117/73 (88) 10/02/17 16:20 99 Room Air 10/02/17 16:20 17 99 Room Air 10/02/17 16:20 62 17 98 Room Air 10/02/17 16:07 98.3 61 18 139/66 (90) 99 Physical Exam GENERAL: Alert WN, WD, NAD, pleasant, -[place] male HEAD: NC, AT EYES: Sclera clear, conjunctiva without injection ENT: Mucous membranes pink and moist CV: RRR, without murmur, rub, gallop, no JVD, S1-S2 no S3-S4. Chest wall nontender with palpation. RESP: Clear lungs throughout bilateral, no crackles, wheeze, rhonchi, symmetrical chest rise, nonlabored, able to speak in full sentences ABD: Soft, NT, ND, no masses, positive bowel tones EXT: Pulses +2x4, no dependent edema MS: Normal tone x4 extremities, nontender, no obvious deformities, full range of motion NEURO: CN II through CN XII grossly intact, motor strength 5/5, gait WNL PSYCH: A+O -3, pleasant affect, appropriate speech, mood, insight and judgment SKIN: Normal turgor, normal texture, no lesions, no rashes, even hair distribution Laboratory Laboratory Tests Test 10/02/17 16:30 White Blood Count 10.1 Red Blood Count 4.73 Hemoglobin 13.8 Hematocrit 41.1 Mean Corpuscular Volume 87.0 Mean Corpuscular Hemoglobin 29.2 Mean Corpuscular Hemoglobin Concent 33.6 Red Cell Distribution Width 16.7 Platelet Count 272 Mean Platelet Volume 7.5 Neutrophils (%) (Auto) 54.8 Lymphocytes (%) (Auto) 34.0 Monocytes (%) (Auto) 7.4 Eosinophils (%) (Auto) 3.0 Basophils (%) (Auto) 0.8 Neutrophils # (Auto) 5.5 Lymphocytes # (Auto) 3.4 Monocytes # (Auto) 0.7 Eosinophils # (Auto) 0.3 Basophils # (Auto) 0.1 CBC Comment DIFF FINAL Differential Comment Prothrombin Time 10.0 Prothromb Time International Ratio 1.0 Activated Partial Thromboplast Time 25.7 Blood Urea Nitrogen 17 Creatinine 1.50 Random Glucose 127 Total Protein 8.0 Albumin 3.7 Calcium Level 8.7 Magnesium Level 1.8 Alkaline Phosphatase 105 Aspartate Amino Transf (AST/SGOT) 24 Alanine Aminotransferase (ALT/SGPT) 42 Total Bilirubin 0.7 Sodium Level 139 Potassium Level 4.2 Chloride Level 105 Carbon Dioxide Level 28.4 Anion Gap 6 Estimat Glomerular Filtration Rate 59 Total Creatine Kinase 291 Creatine Kinase MB 3.3 Troponin I LESS THAN 0.02 Lipase 213 Result Diagram: 10/02/17 1630 10/02/17 1630 Imaging Last 48 hours Impressions Chest X-Ray 10/02/17 1612 Signed Impressions: Service Date/Time: Monday, October 02, 2017 16:21 - CONCLUSION: No acute cardiopulmonary process. Tony Nguyen MD Course EKG Normal sinus rhythm, with PVCs, no ST segment changes Caprini VTE Risk Assessment Caprini VTE Risk Assessment: No/Low Risk (score <= 1) Caprini Risk Assessment Model Point Value = 1 Point Value = 2 Point Value = 3 Point Value = 5 Age 41-60 Minor surgery BMI > 25 kg/m2 Swollen legs Varicose veins or History of unexplained or recurrent spontaneous Oral contraceptives or hormone replacement Sepsis (< 1 month) Serious lung disease, including pneumonia (< 1 month) Abnormal pulmonary function Acute myocardial infarction Congestive heart failure (< 1 month) History of inflammatory bowel disease Medical patient at bed rest Age 61-74 Arthroscopic surgery Major open surgery (> 45 min) Laparoscopic surgery (> 45 min) Malignancy Confined to bed (> 72 hours) Immobilizing plaster cast Central venous access Age >= 75 History of VTE Family history of VTE Factor V Leiden Prothrombin [id number] Lupus anticoagulant Anticardiolipin antibodies Elevated serum homocysteine Heparin-induced thrombocytopenia Other congenital or acquired thrombophilia Stroke (< 1 month) Elective arthroplasty Hip, pelvis, or leg fracture Acute spinal cord injury (< 1 month) Prophylaxis Regimen Total Risk Factor Score Risk Level Prophylaxis Regimen 0-1 Low Early ambulation 2 Moderate Order ONE of the following: *Sequential Compression Device (SCD) *Heparin 5000 units SQ BID 3-4 Higher Order ONE of the following medications: *Heparin 5000 units SQ TID *Enoxaparin/Lovenox 40 mg SQ daily (WT < 150 kg, CrCl > 30 mL/min) *Enoxaparin/Lovenox 30 mg SQ daily (WT < 150 kg, CrCl > 10-29 mL/min) *Enoxaparin/Lovenox 30 mg SQ BID (WT < 150 kg, CrCl > 30 mL/min) AND/OR *Sequential Compression Device (SCD) 5 or more Highest Order ONE of the following medications: *Heparin 5000 units SQ TID (Preferred with Epidurals) *Enoxaparin/Lovenox 40 mg SQ daily (WT < 150 kg, CrCl > 30 mL/min) *Enoxaparin/Lovenox 30 mg SQ daily (WT < 150 kg, CrCl > 10-29 mL/min) *Enoxaparin/Lovenox 30 mg SQ BID (WT < 150 kg, CrCl > 30 mL/min) AND *Sequential Compression Device (SCD) Assessment and Plan Assessment and Plan #1 Chest pain-no chest pain center. Rule out with 3 sets of EEGs, cardiac enzymes, and monitor on telemetry overnight. Will be seen and evaluated by Dr. Prisca Quinonez in a.m. Discussed likelihood of completing cardiac testing in a.m. due to multiple risk factors. Patient agreeable to plan of care. #2 History of type II Diabetes-hold metformin, most recent HgA1C 5.4% therefore will not add SSI coverage at this time #3 History of Hypertension-continue losartan #4 History of Hyperlipidemia-continue Crestor #5 History of GERD-continue pantoprazole #6 History of BPH-continue tamsulosin Mayte Norman Oct 02, 2017 19:07
[2017-10-02] MEDS ORDERED: GLUCAGON 1 MG/ML VIAL OTHER PRN (19:15)
[2017-10-02] MEDS ORDERED: DEXTROSE 50% IN WATER 50 ML VIAL(D50) IV PUSH PRN (19:15)
[2017-10-02] MEDS: SODIUM CHLORIDE 0.9% FLUSH 10 ML FLUSH IV FLUSH SCH (19:30)
[2017-10-02] MEDS ORDERED: TAMSULOSIN HCL 0.4 MG CAP PO SCH (21:00)
[2017-10-02 21:04] LABS: TROPONIN I LESS THAN 0.02 NG/ML (0.02-0.05)
[2017-10-03 00:08] LABS: TROPONIN I LESS THAN 0.02 NG/ML (0.02-0.05)
[2017-10-03 01:00] VITALS: PULSE 56
[2017-10-03 03:50] VITALS: PULSE 51
[2017-10-03 04:34] VITALS: BP 118/65; PULSE 49; RESP 16; TEMP 98.6; O2SAT 98
[2017-10-03 08:23] VITALS: BP 115/59; PULSE 53; RESP 18; TEMP 98.3; O2SAT 98
[2017-10-03] MEDS ORDERED: VALSARTAN 80 MG TAB PO SCH (09:00)
[2017-10-03] MEDS ORDERED: PANTOPRAZOLE SOD 40 MG DELAYED RELEASE TAB PO SCH (09:00)
[2017-10-03] MEDS ORDERED: ASPIRIN 325 MG TAB PO SCH (09:00)
[2017-10-03] MEDS ORDERED: ATORVASTATIN 40 MG TAB PO SCH (09:00)
[2017-10-03] MEDS: SODIUM CHLORIDE 0.9% FLUSH 10 ML FLUSH IV FLUSH SCH (09:04)
[2017-10-03] MEDS ORDERED: REGADENOSON INJ 0.4 MG/5 ML SYR ONE (12:15)
[2017-10-03 13:15] VITALS: BP 119/72; PULSE 68; RESP 18; TEMP 98.4; O2SAT 100
--- NOTE | 2017-10-03 13:22 | RADRPT ---
EXAM DATE/TIME: 10/03/2017 10:48 [facility] COMPARISON: No previous studies available for comparison. INDICATIONS : Chest pain radiating to left arm for 1 day. Angina. DOSE: 25.9 mCi Tc99m Myoview at stress. 8.1 mCi Tc99m Myoview at rest. 0.4 mg Lexiscan STRESS SYMPTOMS: None. EJECTION FRACTION: 53% MEDICAL HISTORY : Hypercholesterolemia. Hypertension. Diabetes mellitus type 2. SURGICAL HISTORY : Right kidney removed. ENCOUNTER: Initial ACUITY: 1 day PAIN SCALE: 2/10 LOCATION: Left chest TECHNIQUE: The patient underwent pharmacologic stress with infusion of prescribed dose. Continuous ECG tracing was monitored during stress. Gated SPECT imaging was performed after stress and conventional SPECT i maging was performed at rest. The examination was performed on a SPECT/CT scanner, both attenuation and non-corrected datasets were reviewed. FINDINGS: DISTRIBUTION: The maximum perfused segment at stress is in the inferior wall. PERFUSION STUDY: Small fixed apical perfusion abnormality is noted. There are no reversible perfusion abnormalities. GATED STUDY: There is intact wall motion and thickening without hypokinetic or dyskinetic segments. CONCLUSION: No evidence of stress-induced reversible perfusion abnormality. Small fixed apical perfusion abnormality. Normal wall motion and ejection fraction. RISK CATEGORY: Low (<1% Annual Mortality Rate) Shaq Romo MD on October 03, 2017 at 13:14 Board Certified Radiologist. This report was verified electronically.
--- NOTE | 2017-10-03 13:55 | HHI.DCPOC ---
Discharge Care Plan Diagnosis: (1) Chest pain (2) HTN (hypertension), benign (3) Hyperlipidemia (4) DM (diabetes mellitus) Goals to Promote Your Health * To prevent worsening of your condition and complications * To maintain your health at the optimal level Directions to Meet Your Goals Take your medications as prescribed Follow your dietary instruction Follow activity as directed Keep your appointments as scheduled Take your immunizations and boosters as scheduled If your symptoms worsen call your PCP, if no PCP go to Urgent Care Center or Emergency Room Smoking is Dangerous to Your Health. Avoid second hand smoke Call the 24-hour hour crisis hotline for domestic abuse at Pal Hansen Oct 03, 2017 13:55
--- NOTE | 2017-10-03 17:37 | TR ---
Date Performed: 10/03/2017 Time Performed: 11:30:13 DOCTOR: Prisca Quinonez DRUG LIST: CLINICAL HISTORY: REASON FOR TEST: REASON FOR ENDING: OBSERVATION: CONCLUSION: ATTEMPTED NUC ETT. TEST STOPPED PRIOR TO REACHING GOAL HR SECONDARY TO SOB AND LEG F ATIGUE. NO CP. OCCASIONAL PVCS.Maximum CC=173 Max HR Achieved=77.0% Maximum SC=109/78 Total Exercise Time=8:19 COMMENTS: suboptimal ETT
--- NOTE | 2017-10-03 17:40 | TR ---
Date Performed: 10/03/2017 Time Performed: 11:56:44 DOCTOR: Prisca Quinonez DRUG LIST: CLINICAL HISTORY: REASON FOR TEST: REASON FOR ENDING: OBSERVATION: CONCLUSION: COMMENTS: Lexiscan stress test was performed under standard four minute protocol. Radionuclide was injected one minute prior to ending the test. No electrocardiographic abormalities were present t o suggest ischemia. Nuclear imaging and interpretation are pending.
--- NOTE | 2017-10-03 17:44 | EKG ---
Date Performed: 10/02/2017 Time Performed: 16:20:06 PTAGE: 52 years EKG: Sinus rhythm WITH OCCASIONAL VENTRICULAR PREMATURE COMPLEXES POSSIBLE LEFT ATRIAL ENLARGEMENT POSSIBLE RIGHT VENT RICULAR CONDUCTION DELAY BORDERLINE ECG Since PREVIOUS TRACING , now with PVC'c PREVIOUS TRACIN07/25/2017 05.06 DOCTOR: Prisca Quinonez Interpretating Date/Time 10/03/2017 17:42:28
--- NOTE | 2017-10-03 17:45 | EKG ---
Date Performed: 10/02/2017 Time Performed: 20:40:23 PTAGE: 52 years EKG: SINUS BRADYCARDIA WITH OCCASIONAL SUPRAVENTRICULAR PREMATURE COMPLEXES BORDERLINE ECG Since PREVIOUS TRACING , no significant change noted PREVIOUS TRACIN10/02/2017 16.20 DOCTOR: Prisca Quinonez Interpretating Date/Time 10/03/2017 17:44:33
--- NOTE | 2017-10-03 17:47 | EKG ---
Date Performed: 10/02/2017 Time Performed: 23:10:41 PTAGE: 52 years EKG: Normal Sinus rhythm with frequent PAC's ABNORMAL ECG PREVIOUS TRACING : 10/02/2017 20.40 DOCTOR: Prisca Quinonez Interpretating Date/Time 10/03/2017 17:45:37
== END 2017-10-03 15:51 | disposition home or self-care (01) ==
LOC: NEPE 16:05 → NEDA 17:22 → NEPGCP 19:13
PROVIDERS: ADMIT Internal Medicine Cardiovascular Disease; ATTEND Internal Medicine Cardiovascular Disease
DX: R07.89 Other chest pain (principal); M79.602 Pain in left arm; R20.0 Anesthesia of skin; R20.2 Paresthesia of skin; I10 Essential (primary) hypertension; I49.3 Ventricular premature depolarization; R00.1 Bradycardia, unspecified; R94.31 Abnormal electrocardiogram [ECG] [EKG]; E78.00 Pure hypercholesterolemia, unspecified; E11.9 Type 2 diabetes mellitus without complications; K21.9 Gastro-esophageal reflux disease without esophagitis; N40.0 Benign prostatic hyperplasia without lower urinary tract symptoms; Z87.891 Personal history of nicotine dependence; Z79.899 Other long term (current) drug therapy; Z79.82 Long term (current) use of aspirin; Z79.84 Long term (current) use of oral hypoglycemic drugs
CPT/HCPCS: 71045; 78452; 80053; 82550; 82552; 82948; 83690; 83735; 84484; 85025; 85610; 85730; 93005; 93017; 96360; 99285; A9502; G0378; J2785; J7040